=== PATIENT | female | born 1960 | race Caucasian/White ===

== ENCOUNTER → 2018-04-15 | Outpatient (CLI) | payer BC ==
--- NOTE | 2018-04-15 14:47 | ECHOF ---
Referral Reason:R07.89 chest pain/I10 essential hypertention MEASUREMENTS -------- HEIGHT: 160.0 cm WEIGHT: 78.9 kg BP: 177/94 RVIDd: 2.3 cm (< 3.3) IVSd: 1.0 cm (0.6 - 1.1) LVIDd: 2.9 cm (3.9 - 5.3) LVPWd: 1.1 cm (0.6 - 1.1) IVSs: 1.8 cm LVIDs: 1.4 cm LVPWs: 1.6 cm LAESV Index (A-L): 13.66 ml/m Ao Diam: 2.5 cm (2.0 - 3.7) AV Cusp: 1.7 cm (1.5 - 2.6) LA Diam: 2.9 cm (2.7 - 3.8) MV E Jose: 0.50 m/s MV DecT: 333 ms MV A Jose: 0.87 m/s MV E/A Ratio: 0.57 RAP: 5.00 mmHg RVSP: 31.16 mmHg FINDINGS -------- Resting tachycardia (HR>100bpm). This was a technically adequate study. The left ventricular size is normal. Left ventricular wall thickness is normal. Left ventricular systolic function is hyperdynamic with an estimated EF of >70%. The right ventricle is normal in size and function. Normal LA size by volume 22+/-6 ml/m2. The right atrium is normal in size. The aortic valve is trileaflet, and appears structurally normal. No aortic stenosis or regurgitation. The mitral valve leaflets are mildly thickened. There is trace to mild mitral regurgitation. Trace tricuspid regurgitation present. Right ventricular systolic pressure is normal at < 35 mmHg. There is no evidence of pulmonary hypertension. The pulmonic valve was not well visualized. The aortic root size is normal. Normal inferior vena cava with normal inspiratory collapse consistent with estimated right atrial pre ssure of 5 mmHg. There is no pericardial effusion. CONCLUSIONS -------- 1. Resting tachycardia (HR>100bpm). 2. This was a technically adequate study. 3. The left ventricular size is normal. 4. Left ventricular wall thickness is normal. 5. Left ventricular systolic function is hyperdynamic with an estimated EF of >70%. 6. Normal LA size by volume 22+/-6 ml/m2. 7. The aortic valve is trileaflet, and appears structurally normal. No aortic stenosis or regurgitati on. 8. The mitral valve leaflets are mildly thickened. 9. There is trace to mild mitral regurgitation. 10. Trace tricuspid regurgitation present. 11. Right ventricular systolic pressure is normal at < 35 mmHg. 12. There is no evidence of pulmonary hypertension. 13. The pulmonic valve was not well visualized. 14. The aortic root size is normal. 15. There is no pericardial effusion. [employer]: Ramírez Arreguin RDCS
--- NOTE | 2018-04-15 15:53 | EST ---
EXERCISE STRESS DATE OF SERVICE: 04/15/2018 AGE: 57 SEX: Female. HT: 5'3" WT: 174 PROTOCOL: Geoff. STAGE: II DURATION OF EXERCISE: 6:30 HEART RATE REST: 113 BLOOD PRESSURE REST: 175/86 MAXIMUM HEART RATE ACHIEVED: 178 MAXIMUM BLOOD PRESSURE: 218/47 85% MPHR: 139 100% MPHR: 164 METS: 7.9 INDICATIONS: Chest pain. CLINICAL INFORMATION: STRESS DATA: Pre-testing physical examination showed a heart rate of 113 and pressure of 175/86 mmHg. Baseline EKG showed sinus mechanism. The patient exercised on the treadmill on Geoff protocol for a total of 6 minutes and 30 seconds and achieved 7.9 METS. Maximum heart rate was 178, which is about 108% of maximum predicted heart rate. Maximum blood pressure was 218/69 mmHg. Clinically the patient did not have any symptoms of chest pain or discomfort, but she developed some shortness of breath in response to exercise. The EKG showed about [address]-segment depression in the anterolateral leads. The EKG changes were noted on recovery as well as at the peak of the heart rate. CONCLUSION: 1. Good exercise tolerance. 2. Shortness of breath in response to exercise. 3. Mildly abnormal EKG in response to exercise with [address]-segment depression. MMODL / IJN: [id number] /
== END | disposition home or self-care (01) ==
LOC: RADNMMAIN 10:36
PROVIDERS: ATTEND Family Medicine
DX: I34.0 Nonrheumatic mitral (valve) insufficiency (principal); I10 Essential (primary) hypertension; R00.0 Tachycardia, unspecified; R06.02 Shortness of breath; R94.31 Abnormal electrocardiogram [ECG] [EKG]; R07.89 Other chest pain
CPT/HCPCS: 93017; 93306

== ENCOUNTER 2019-02-21 12:11 | Observation (INO) | payer BC ==
[2019-02-21] MEDS ORDERED: ASPIRIN 81 MG PO STA (12:39)
[2019-02-21] MEDS ORDERED: NITROGLYCERIN SL TABS 0.4 MG TAB SUBLINGUAL STA ×3 (12:39)
--- NOTE | 2019-02-21 12:59 | ED ---
General Adult HPI - General Chief complaint: Chest Pain Stated complaint: CHEST PAIN Time Seen by Provider: 02/21/19 12:26 Source: patient, RN notes reviewed Mode of arrival: wheelchair Limitations: no limitations - History of Present Illness Initial comments: Patient is a pleasant 58-year-old female presenting to the emergency Department with chest discomfort. Patient states symptoms started up last night. Symptoms have been waxing and waning. Discomfort is currently 6/10. Times discomfort feels worse. Discomfort feels like pressure or sharp in the left chest. No radiation. No associated dyspnea or nausea. Patient was somewhat sweaty collins ier. Patient has had somewhat similar symptoms over the past few months and did have stress test that came back negative. - Related Data Home Medications Medication Instructions Recorded Confirmed Metoprolol Tartrate [Lopressor] 25 mg PO BID 02/21/19 02/21/19 Multivitamins, Thera [Multivitamin 1 tab PO DAILY 02/21/19 02/21/19 (formulary)] Allergies Allergy/AdvReac Type Severity Reaction Status Date / Time amlodipine [From [facility]] Allergy Unknown Verified 02/21/19 12:15 Sulfa (Sulfonamide Allergy Unknown Verified 02/21/19 12:15 Antibiotics) Review of Systems ROS Statement: Those systems with pertinent positive or pertinent negative responses have been documented in the HPI. ROS Other: All systems not noted in ROS Statement are negative. Constitutional: Denies: fever Eyes: Denies: eye pain ENT: Denies: ear pain Respiratory: Denies: cough Cardiovascular: Reports: chest pain Endocrine: Denies: fatigue Gastrointestinal: Denies: abdominal pain Genitourinary: Denies: dysuria Musculoskeletal: Denies: back pain Skin: Denies: rash Neurological: Denies: weakness Past Medical History Past Medical History: Hypertension Additional Past Medical History / Comment(s): kidney stones History of Any Multi-Drug Resistant Organisms: None Reported Additional Past Surgical History / Comment(s): lithotripsy Past Psychological History: No Psychological Hx Reported Smoking Status: Former smoker Past Alcohol Use History: None Reported Past Drug Use History: None Reported General Exam Limitations: no limitations General appearance: alert, in no apparent distress Head exam: Present: atraumatic Eye exam: Present: normal appearance Neck exam: Present: normal inspection Respiratory exam: Present: normal lung sounds bilaterally. Absent: chest wall tenderness Cardiovascular Exam: Present: regular rate, normal rhythm Expanded Peripheral pulses: 2+: Radial (R), Radial (L), Dorsalis Pedis (R), Dorsalis Pedis (L) GI/Abdominal exam: Present: soft. Absent: tenderness Extremities exam: Present: normal inspection. Absent: pedal edema, calf tenderness Neurological exam: Present: alert Psychiatric exam: Present: normal affect, normal mood Skin exam: Present: normal color Course Vital Signs 02/21/19 02/21/19 02/21/19 12:13 13:00 13:13 Temperature 98.4 F Pulse Rate 77 71 68 Respiratory 18 18 18 Rate Blood Pressure 183/83 196/97 160/85 O2 Sat by Pulse 99 92 L 94 L Oximetry 02/21/19 02/21/19 02/21/19 13:30 14:00 14:30 Temperature Pulse Rate 61 63 67 Respiratory 20 14 14 Rate Blood Pressure 170/85 176/88 182/87 O2 Sat by Pulse 97 95 96 Oximetry 02/21/19 15:00 Temperature Pulse Rate 68 Respiratory 14 Rate Blood Pressure 177/84 O2 Sat by Pulse 95 Oximetry EKG Findings - EKG Comments: EKG Findings:: Normal sinus rhythm 66. OK 112. QRS 86. QT 406. QTc 425. Normal axis. Normal QRS. No acute ST change. Medical Decision Making - Medical Decision Making Patient reevaluated and improved following nitroglycerin. Patient and family updated on results and plan. Case was discussed in detail with Dr. Butterfield, who will admit his patient. - Lab Data Result diagrams: 02/21/19 12:48 02/21/19 12:48 Lab Results 02/21/19 02/21/19 02/21/19 Range/Units 12:48 12:48 12:48 WBC 6.4 (3.8-10.6) k/uL RBC 5.58 H (3.80-5.40) m/uL Hgb 16.3 H (11.4-16.0) gm/dL Hct 50.2 H (34.0-46.0) % MCV 89.9 (80.0-100.0) fL MCH 29.1 (25.0-35.0) pg MCHC 32.4 (31.0-37.0) g/dL RDW 13.7 (11.5-15.5) % Plt Count 225 (150-450) k/uL Neutrophils % 70 % Lymphocytes % 19 % Monocytes % 6 % Eosinophils % 2 % Basophils % 1 % Neutrophils # 4.5 (1.3-7.7) k/uL Lymphocytes # 1.2 (1.0-4.8) k/uL Monocytes # 0.4 (0-1.0) k/uL Eosinophils # 0.1 (0-0.7) k/uL Basophils # 0.1 (0-0.2) k/uL PT 9.7 (9.0-12.0) sec INR 0.9 (<1.2) APTT 23.2 (22.0-30.0) sec Sodium 142 (137-145) mmol/L Potassium 5.1 (3.5-5.1) mmol/L Chloride 109 H (98-107) mmol/L Carbon Dioxide 24 (22-30) mmol/L Anion Gap 9 mmol/L BUN 21 H (7-17) mg/dL Creatinine 0.99 (0.52-1.04) mg/dL Est GFR (CKD-EPI)AfAm 73 (>60 ml/min/1.73 sqM) Est GFR (CKD-EPI)NonAf 64 (>60 ml/min/1.73 sqM) Glucose 123 H (74-99) mg/dL Calcium 9.4 (8.4-10.2) mg/dL Magnesium 2.0 (1.6-2.3) mg/dL Total Bilirubin 0.9 (0.2-1.3) mg/dL AST 42 H (14-36) U/L ALT 37 (9-52) U/L Alkaline Phosphatase 121 (38-126) U/L Troponin I (0.000-0.034) ng/mL Total Protein 7.2 (6.3-8.2) g/dL Albumin 4.3 (3.5-5.0) g/dL 02/21/19 Range/Units 12:48 WBC (3.8-10.6) k/uL RBC (3.80-5.40) m/uL Hgb (11.4-16.0) gm/dL Hct (34.0-46.0) % MCV (80.0-100.0) fL MCH (25.0-35.0) pg MCHC (31.0-37.0) g/dL RDW (11.5-15.5) % Plt Count (150-450) k/uL Neutrophils % % Lymphocytes % % Monocytes % % Eosinophils % % Basophils % % Neutrophils # (1.3-7.7) k/uL Lymphocytes # (1.0-4.8) k/uL Monocytes # (0-1.0) k/uL Eosinophils # (0-0.7) k/uL Basophils # (0-0.2) k/uL PT (9.0-12.0) sec INR (<1.2) APTT (22.0-30.0) sec Sodium (137-145) mmol/L Potassium (3.5-5.1) mmol/L Chloride (98-107) mmol/L Carbon Dioxide (22-30) mmol/L Anion Gap mmol/L BUN (7-17) mg/dL Creatinine (0.52-1.04) mg/dL Est GFR (CKD-EPI)AfAm (>60 ml/min/1.73 sqM) Est GFR (CKD-EPI)NonAf (>60 ml/min/1.73 sqM) Glucose (74-99) mg/dL Calcium (8.4-10.2) mg/dL Magnesium (1.6-2.3) mg/dL Total Bilirubin (0.2-1.3) mg/dL AST (14-36) U/L ALT (9-52) U/L Alkaline Phosphatase (38-126) U/L Troponin I <0.012 (0.000-0.034) ng/mL Total Protein (6.3-8.2) g/dL Albumin (3.5-5.0) g/dL - Radiology Data Radiology results: image reviewed (Chest x-ray does not reveal any acute process.) Disposition Clinical Impression: Chest pain Disposition: ADMITTED IP TO THIS HOSP Is patient prescribed a controlled substance at d/c from ED?: No Referrals: Cristino Butterfield DO [Primary Care Provider] - 1-2 days Decision Time: 15:03
--- NOTE | 2019-02-21 13:03 | XR ---
EXAMINATION TYPE: XR chest 2V DATE OF EXAM: 02/21/2019 COMPARISON: Chest x-ray February 14, 2014 HISTORY: Left-sided chest pain and difficulty in breathing. TECHNIQUE: Frontal and lateral views of the chest are obtained. FINDINGS: Overlying EKG leads are seen. There is chronic parenchymal change without suspicious focal air space opacity, pleural effusion, or pneumothorax seen. The cardiac silhouette size is stable and mildly enlarged with atherosclerotic aorta. The osseous structures are intact. IMPRESSION: Mild cardiomegaly with acute pulmonary process currently.
[2019-02-21 13:15] LABS: Albumin 4.3 g/dL (3.5-5.0); Calcium 9.4 mg/dL (8.4-10.2); Total Bilirubin 0.9 mg/dL (0.2-1.3); Total Protein 7.2 g/dL (6.3-8.2)
[2019-02-21 13:19] LABS: Basophils # (A) 0.1 k/uL (0-0.2); Basophils % (A) 1 %; Eosinophils # (A) 0.1 k/uL (0-0.7); Eosinophils % (A) 2 %; HCT 50.2 % (34.0-46.0); HGB 16.3 gm/dL (11.4-16.0); Lymphocytes # (A) 1.2 k/uL (1.0-4.8); Lymphocytes % (A) 19 %; MCH 29.1 pg (25.0-35.0); MCHC 32.4 g/dL (31.0-37.0); MCV 89.9 fL (80.0-100.0); Mean Platelet Volume 7.1; Monocytes # (A) 0.4 k/uL (0-1.0); Monocytes % (A) 6 %; Neutrophils # (A) 4.5 k/uL (1.3-7.7); Neutrophils % (A) 70 %; Platelet Count 225 k/uL (150-450); RBC 5.58 m/uL (3.80-5.40); RDW 13.7 % (11.5-15.5); WBC 6.4 k/uL (3.8-10.6)
[2019-02-21 13:40] LABS: INR 0.9 (<1.2); Partial Thromboplastin Time 23.2 sec (22.0-30.0)
[2019-02-21 13:41] LABS: Potassium 5.1 mmol/L (3.5-5.1); Prothrombin Time 9.7 sec (9.0-12.0)
[2019-02-21] MEDS ORDERED: NITROGLYCERIN SL TABS 0.4 MG TAB SUBLINGUAL PRN (15:06)
[2019-02-21] MEDS: NITROGLYCERIN OINT 1 INCH/GM PACKET TOPICAL SCH ×2 (21:36→23:15)
[2019-02-21 23:00] VITALS: BMI 31.5
[2019-02-21] MEDS ORDERED: amLODIPine 5 MG TAB PO STA (23:33)
[2019-02-21] MEDS ORDERED: ACETAMINOPHEN TAB 325 MG TAB PO PRN (23:34)
[2019-02-21] MEDS: METOPROLOL TARTRATE 25 MG TAB PO SCH (23:42)
[2019-02-22] MEDS ORDERED: cloNIDine HCL 0.1 MG TAB PO STA (00:23)
[2019-02-22 01:58] LABS: Cholesterol 252 mg/dL (<200); HDL Cholesterol 49 mg/dL (40-60); LDL Cholesterol,Calculated 149 mg/dL (0-99); Triglycerides 271 mg/dL (<150)
[2019-02-22] MEDS: NITROGLYCERIN OINT 1 INCH/GM PACKET TOPICAL SCH (05:42)
[2019-02-22 08:07] VITALS: RESP 18
[2019-02-22] MEDS ORDERED: ASPIRIN 325 MG TAB PO SCH (09:00)
[2019-02-22] MEDS: METOPROLOL TARTRATE 25 MG TAB PO SCH (10:41)
[2019-02-22] MEDS ORDERED: LABETALOL 100 MG TAB PO SCH (10:45)
--- NOTE | 2019-02-22 10:48 | P.CRDCN ---
History of Present Illness History of present illness: This is a pleasant 58-year-old female past medical history significant for hypertension. She denies history of coronary artery disease, dyslipidemia or diabetes mellitus. She follows in the office with Dr. Cantu. We've asked to see her in consultation for symptoms of chest discomfort. She describes feeling a sharp stabbing pain in the left precordial region is very intermittent with no specific aggravating or alleviating factors. The pain is very brief when it comes there is no radiation to the arm, back, neck or jaw. There is no shortness of breath, nausea, vomiting, dizziness, diaphoresis or palpitations. She states she has had pain like this in the past and has undergone recent stress testing in the office. Review of the records reveal she had a Lexiscan stress test in October 2018 was negative for reversible cardiac ischemia. She also had an echocardiogram in the office March 2018 revealed preserved left ventricular systolic function with ejection fraction greater then 70%. She has struggled with her blood pressure frequently over the previous few months. She states she is intolerant to amlodipine and developed significant lower extremity edema which was switched to Benicar which caused her to have a cough. Recently in the office Dr. Cantu switched her to metoprolol 25 mg twice a day with recommendation to monitor her blood pressure at home. Her blood pressures at home continue to be elevated. On arrival blood pressure was 183/83 and 196/97. She was given a dose of Catapres last evening. Blood pressure this morning 158/80 heart rate of 61. She is seen and examined resting comfortably in bed in no acute distress she is currently chest pain-free. EKG reveals sinus mechanism with no acute ST or T wave abnormalities noted. Chest x-ray is negative for an acute cardiopulmonary process. Laboratory data reviewed, WBC 6.4, hemoglobin 16.3, platelets 225, sodium 142, potassium 5.1, creatinine 0.99, magnesium 2.0, cardiac enzymes negative 3, LDL 149. At the time of my exam: CONSTITUTIONAL: Denies fever. Denies chills. EYES: Denies blurred vision. Denies vision changes. Denies eye pain. EARS, NOSE, MOUTH & THROAT: Denies headache. Denies sore throat. Denies ear pain. CARDIOVASCULAR: Denies chest pain. Denies shortness of breath. Denies orthopnea. Denies PND. Denies palpitations. RESPIRATORY: Denies cough. GASTROINTESTINAL: Denies abdominal pain. Denies diarrhea. Denies constipation. Denies nausea. Denies vomiting. MUSCULOSKELETAL: Denies myalgias. INTEGUMENTARY: Denies pruitis. Denies rash. NEUROLOGIC: Denies numbness. Denies tingling. Denies weakness. PSYCHIATRIC: Denies anxiety. Denies depression. ENDOCRINE: Denies fatigue. Denies weight change. Denies polydipsia. Denies polyurina. GENITOURINARY: Denies burning, hematuria or urgency with micturation. HEMATOLOGIC: Denies history of anemia. Denies bleeding. GENERAL: This is a 58-year-old female in no apparent distress at the time of my examination. HEENT: Head is atraumatic, normocephalic. Pupils are equal, round. Sclerae anicteric. Conjunctivae are clear. Mucous membranes of the mouth are moist. Neck is supple. There is no jugular venous distention. No carotid bruit is heard. LUNGS: Clear to auscultation no wheezes, rales or rhonchi. No chest wall t enderness is noted on palpation or with deep breathing. HEART: Regular rate and rhythm without murmurs, rubs or gallops. S1 and S2 heard. ABDOMEN: Soft, nontender. Bowel sounds are heard. No organomegaly noted. EXTREMITIES: No evidence of peripheral edema and no calf tenderness noted. VASCULAR: Radial and dorsalis pedis pulses palpated, no evidence of clubbing. NEUROLOGIC: Patient is awake, alert and oriented x3. ASSESSMENT Chest pain, atypical for angina. An acute coronary event has been ruled out. Recent stress test in the office October 2018 was negative for reversible cardiac ischemia. Hypertension, uncontrolled Dyslipidemia PLAN An acute coronary event has been ruled out. Recent normal stress test in the office. Uncontrolled hypertension may be causing her symptoms. Change lopressor to labetolol 100 mg BID, first dose now. Add atorvastatin 40 mg daily. Lifestyle modifications recommended for lowering of cholesterol and weight loss. Follow up with Dr. Cantu upon discharge. Continue with a blood pressure log to bring to follow up appointment. Thank you kindly for this consultation. Nurse Practitioner note has been reviewed, I agree with a documented findings and plan of care. Patient was seen and examined. Past Medical History Past Medical History: Hypertension Additional Past Medical History / Comment(s): kidney stones History of Any Multi-Drug Resistant Organisms: None Reported Additional Past Surgical History / Comment(s): lithotripsy Past Anesthesia/Blood Transfusion Reactions: No Reported Reaction Past Psychological History: No Psychological Hx Reported Smoking Status: Former smoker Past Alcohol Use History: None Reported Past Drug Use History: None Reported - Past Family History Mother Family Medical History: Hypertension, Myocardial Infarction ([place]) Father Family Medical History: Hypertension Medications and Allergies Home Medications Medication Instructions Recorded Confirmed Type Metoprolol Tartrate [Lopressor] 25 mg PO BID 02/21/19 02/21/19 History Multivitamins, Thera [Multivitamin 1 tab PO DAILY 02/21/19 02/21/19 History (formulary)] Allergies Allergy/AdvReac Type Severity Reaction Status Date / Time amlodipine [From [facility]] Allergy Unknown Verified 02/21/19 12:15 Sulfa (Sulfonamide Allergy Unknown Verified 02/21/19 12:15 Antibiotics) Physical Exam Vitals: Vital Signs Temp Pulse Pulse Resp BP BP BP 02/22/19 08:00 98.7 F 61 18 158/80 02/22/19 04:00 97.9 F 60 16 144/65 02/22/19 03:33 16 02/22/19 00:50 188/83 02/22/19 00:00 71 16 02/21/19 23:51 98.2 F 71 16 199/82 02/21/19 22:54 20 02/21/19 22:30 70 20 172/89 02/21/19 22:00 67 16 175/80 02/21/19 21:30 67 18 163/81 02/21/19 21:00 68 20 150/73 02/21/19 20:00 70 18 180/89 02/21/19 18:30 68 14 165/87 02/21/19 18:00 66 15 167/79 02/21/19 17:30 71 15 171/81 02/21/19 17:00 69 20 177/84 02/21/19 16:30 61 18 174/90 02/21/19 16:00 64 14 182/90 02/21/19 15:30 68 15 181/85 02/21/19 15:00 68 14 177/84 02/21/19 14:30 67 14 182/87 02/21/19 14:00 63 14 176/88 02/21/19 13:30 61 20 170/85 02/21/19 13:13 68 18 160/85 02/21/19 13:00 71 18 196/97 02/21/19 12:13 98.4 F 77 18 183/83 Pulse Ox 02/22/19 08:00 95 02/22/19 04:00 94 L 02/22/19 03:33 02/22/19 00:50 02/22/19 00:00 02/21/19 23:51 95 02/21/19 22:54 02/21/19 22:30 94 L 02/21/19 22:00 95 02/21/19 21:30 94 L 02/21/19 21:00 94 L 02/21/19 20:00 94 L 02/21/19 18:30 96 02/21/19 18:00 95 02/21/19 17:30 94 L 02/21/19 17:00 96 02/21/19 16:30 96 02/21/19 16:00 96 02/21/19 15:30 96 02/21/19 15:00 95 02/21/19 14:30 96 02/21/19 14:00 95 02/21/19 13:30 97 02/21/19 13:13 94 L 02/21/19 13:00 92 L 02/21/19 12:13 99 Intake and Output 02/21/19 02/22/19 02/22/19 22:59 06:59 14:59 Intake Total 100 Balance 100 Intake: Oral 100 Other: # Voids 2 Results 02/21/19 12:48 02/21/19 12:48 Cardiac Enzymes 02/21/19 02/21/19 02/21/19 Range/Units 12:48 12:48 20:39 AST 42 H (14-36) U/L Troponin I <0.012 <0.012 (0.000-0.034) ng/mL 02/22/19 Range/Units 00:32 AST (14-36) U/L Troponin I <0.012 (0.000-0.034) ng/mL Coagulation 02/21/19 Range/Units 12:48 PT 9.7 (9.0-12.0) sec APTT 23.2 (22.0-30.0) sec Lipids 02/21/19 Range/Units 12:48 Triglycerides 271 H (<150) mg/dL Cholesterol 252 H (<200) mg/dL HDL Cholesterol 49 (40-60) mg/dL CBC 02/21/19 Range/Units 12:48 WBC 6.4 (3.8-10.6) k/uL RBC 5.58 H (3.80-5.40) m/uL Hgb 16.3 H (11.4-16.0) gm/dL Hct 50.2 H (34.0-46.0) % Plt Count 225 (150-450) k/uL Comprehensive Metabolic Panel 02/21/19 Range/Units 12:48 Sodium 142 (137-145) mmol/L Potassium 5.1 (3.5-5.1) mmol/L Chloride 109 H (98-107) mmol/L Carbon Dioxide 24 (22-30) mmol/L BUN 21 H (7-17) mg/dL Creatinine 0.99 (0.52-1.04) mg/dL Glucose 123 H (74-99) mg/dL Calcium 9.4 (8.4-10.2) mg/dL AST 42 H (14-36) U/L ALT 37 (9-52) U/L Alkaline Phosphatase 121 (38-126) U/L Total Protein 7.2 (6.3-8.2) g/dL Albumin 4.3 (3.5-5.0) g/dL Current Medications Generic Name Dose Route Start Last Admin Trade Name Freq PRN Reason Stop Dose Admin Acetaminophen 650 mg 02/21/19 23:34 02/22/19 00:14 Tylenol Tab PO 650 mg Q6HR PRN Administration Fever and/ or Pain Aspirin 325 mg 02/22/19 09:00 Aspirin PO DAILY SAL Metoprolol Tartrate 25 mg 02/21/19 23:30 02/21/19 23:42 Lopressor PO 25 mg BID SAL Administration Nitroglycerin 1 inch 02/21/19 18:00 02/22/19 05:42 Nitro-Bid Oint TOPICAL 1 inch Q6HR SAL Administration Nitroglycerin 0.4 mg 02/21/19 15:06 Nitrostat SUBLINGUAL Q5M PRN Chest Pain Sodium Chloride 10 ml 02/21/19 21:00 02/21/19 22:52 Saline Flush IV Not Given BID SAL Intake and Output 02/21/19 02/22/19 02/22/19 22:59 06:59 14:59 Intake Total 100 Balance 100 Intake: Oral 100 Other: # Voids 2 02/21/19 12:48 02/21/19 12:48
[2019-02-22] MEDS ORDERED: ATORVASTATIN 40 MG TAB PO SCH (11:00)
[2019-02-22 12:31] VITALS: BP 157/67; PULSE 72; TEMP 97.7
[2019-02-22] MEDS ORDERED: EZETIMIBE 10 MG TAB PO SCH (12:45)
--- NOTE | 2019-02-22 23:37 | P.HPIM ---
History of Present Illness H&P Date: 02/22/19 Chief Complaint: chest pain Patient is a pleasant 58-year-old female presenting to the emergency Department with chest discomfort. midsternal nonradiating. Patient states symptoms started up last night. Symptoms have been waxing and waning. Discomfort is currently resolved. Discomfort feels like pressure or sharp in the left chest, No associated dyspnea or nausea. Patient has had somewhat similar symptoms over the past few months and did have stress test that came back negative. ith Dr. Cantu she also had similar hospitalization in April 2018 with echo and stress test performed which was negative at that time. She has long-f hyperlipidemia which has refused statins for many years. Review of Systems GENERAL: Patient denies fever. Denies chills. EYES: Denies blurred vision. Denies vision changes. Denies eye pain. EARS, NOSE, MOUTH, & THROAT: Denies headache. Denies sore throat. Denies ear pain. RESPIRATORY: Denies cough. Denies shortness of breath. Denies sputum production. Denies hemoptysis. CARDIOVASCULAR: admits to chest pain nonradiatinstarting at 6 out of 10 now resolved. Denies any diaphoresis or nausea. Denies palpitations. Denies arrhythmias. GASTROINTESTINAL: Denies abdominal pain. Denies diarrhea. Denies constipation. Denies nausea. Denies vomiting. Denies heartburn. Denies blood in the stool. GENITOURINARY: Denies urinary frequency. Denies burning. Denies dysuria. Denies cloudy urine. Denies blood in the urine. MUSCULOSKELETAL: Denies myalgias. Denies joint swelling. Denies decreased range of motion beyond patients baseline. INTEGUMENTARY: Denies pruitis. Denies rash. PSYCHIATRIC: Denies suicidal or homicial ideations. ENDOCRINE: Denies weight change. Denies polydipsia. Denies polyuria. HEMATOLOGIC: Denies bleeding disorders. Past Medical History Past Medical History: Hypertension Additional Past Medical History / Comment(s): kidney stones History of Any Multi-Drug Resistant Organisms: None Reported Additional Past Surgical History / Comment(s): lithotripsy Past Anesthesia/Blood Transfusion Reactions: No Reported Reaction Past Psychological History: No Psychological Hx Reported Smoking Status: Former smoker Past Alcohol Use History: None Reported Past Drug Use History: None Reported - Past Family History Mother Family Medical History: Hyperlipidemia, Hypertension, Myocardial Infarction ([place]) Father Family Medical History: Hypertension Medications and Allergies Home Medications Medication Instructions Recorded Confirmed Type Multivitamins, Thera [Multivitamin 1 tab PO DAILY 02/21/19 02/21/19 History (formulary)] Aspirin 325 mg PO DAILY tab 02/22/19 Rx Ezetimibe [Zetia] 10 mg PO DAILY #90 tab 02/22/19 Rx Labetalol [Trandate] 100 mg PO BID #120 tab 02/22/19 Rx Allergies Allergy/AdvReac Type Severity Reaction Status Date / Time amlodipine [From [facility]] Allergy Unknown Verified 02/21/19 12:15 Sulfa (Sulfonamide Allergy Unknown Verified 02/21/19 12:15 Antibiotics) Physical Exam Osteopathic Statement: *. No significant issues noted on an osteopathic structural exam other than those noted in the History and Physical/Consult. Vitals: Vital Signs Temp Pulse Resp BP BP Pulse Ox 02/22/19 12:00 97.7 F 72 18 157/67 96 02/22/19 08:00 98.7 F 61 18 158/80 95 02/22/19 04:00 97.9 F 60 16 144/65 94 L 02/22/19 03:33 16 02/22/19 00:50 188/83 02/22/19 00:00 71 16 02/21/19 23:51 98.2 F 71 16 199/82 95 Intake and Output 02/22/19 02/22/19 02/23/19 14:59 22:59 06:59 Intake Total 960 Balance 960 Intake: Oral 960 Other: # Voids 2 GENERAL: This is a -year- 58old female in no apparent distress at the time of examination. Pleasant and cooperative. HEENT: Head is atraumatic, normocephalic. Pupils are equal, round, and reactive to light. Sclerae anicteric. Conjunctivae are clear. Mucus membranes of the mouth are moist. Neck is supple. RESPIRATORY: Clear to auscultation. No wheezes, rales, or rhonchi. No use of accessory muscles. Patient maintaining oxygen saturation greater than 92%. No chest wall tenderness is noted on palpation or with deep breathing. CARDIOVASCULAR: Regular rate and rhythm. S1 and S2 noted. No systolic or diastolic murmur auscultated. No JVD noted. No S3 or S4 noted. GASTROINTESTINAL: No distention noted. Abdomen soft and round. Normal active bowel sounds auscultated x 4 quadrants. No pain or tenderness noted upon palpation. INTEGUMENTARY: No cyanosis. No jaundice. No rashes noted. No cellulitis noted. EXTREMITIES: 2+ peripheral pulses. No evidence of peripheral edema. No calf tenderness noted. NEUROLOGIC: Cranial nerves II-XII intact. PSYCHIATRIC: Awake, alert, and oriented X 3. Appropriate affect. Intact judgement and insight. Results CBC & Chem 7: 02/21/19 12:48 02/21/19 12:48 Labs: Abnormal Lab Results - Last 24 Hours (Table) 02/21/19 Range/Units 12:48 Triglycerides 271 H (<150) mg/dL Cholesterol 252 H (<200) mg/dL LDL Cholesterol, Calc 149 H (0-99) mg/dL Thrombosis Risk Factor Assmnt - Choose All That Apply Any of the Below Risk Factors Present?: Yes Each Factor Represents 1 point: Age 41-60 years, Obesity (BMI >25) Other Risk Factors: No Other congenital or acquired thrombophilia - If yes, enter type in comment: No Thrombosis Risk Factor Assessment Total Risk Factor Score: 2 Thrombosis Risk Factor Assessment Level: Low Risk Assessment and Plan (1) Hypertension Status: Acute Code(s): I10 - ESSENTIAL (PRIMARY) HYPERTENSION SNOMED Code(s): 59212857 (2) Hyperlipemia, mixed Status: Acute Code(s): E78.2 - MIXED HYPERLIPIDEMIA SNOMED Code(s): 814790320 (3) Cessation of tobacco use in previous 12 months Narrative/Plan: plan is to admit patient for cardiology consultation progress serial EKGs and serial enzymes all were in progress anemarkable at this point. Status: Acute Code(s): Z87.891 - PERSONAL HISTORY OF NICOTINE DEPENDENCE SNOMED Code(s): 21806879453433 (4) Chest pain Status: Acute Code(s): R07.9 - CHEST PAIN, UNSPECIFIED SNOMED Code(s): 16324151
--- NOTE | 2019-02-22 23:40 | P.DS ---
Providers Date of admission: 02/21/19 15:06 Expected date of discharge: 02/22/19 Attending physician: Cristino Butterfield Consults: 02/21/19 15:06 Consult Physician Urgent Consulting Provider: Dimitris Cantu Consult Reason/Comments: cp Do you want consulting provider notified?: Yes Primary care physician: Cristino Butterfield - Discharge Diagnosis(es) (1) Hypertension Status: Acute (2) Hyperlipemia, mixed Status: Acute (3) Cessation of tobacco use in previous 12 months Status: Acute (4) Chest pain Status: Acute Hospital Course: this is an pleasant 58-year-old white female who the above diagnosis she was treated with serial EKGs enzymes and cardiac evaluationher chest pain has resolved and she was doing quite well and found to be cleared by cardiology for discharge the main concern is her lack of ability to take statins for hypertriglycerides and hyperlipidemia. Also her blood pressure is still relatively uncontrolled. Some recommendations were made into new medications were added. Plan - Discharge Summary New Discharge Prescriptions: New Aspirin 325 mg PO DAILY tab Labetalol [Trandate] 100 mg PO BID #120 tab Ezetimibe [Zetia] 10 mg PO DAILY #90 tab Continue Multivitamins, Thera [Multivitamin (formulary)] 1 tab PO DAILY Discontinued Metoprolol Tartrate [Lopressor] 25 mg PO BID Discharge Medication List Multivitamins, Thera [Multivitamin (formulary)] 1 tab PO DAILY 02/21/19 [History] Aspirin 325 mg PO DAILY tab 02/22/19 [Rx] Ezetimibe [Zetia] 10 mg PO DAILY #90 tab 02/22/19 [Rx] Labetalol [Trandate] 100 mg PO BID #120 tab 02/22/19 [Rx] Follow up Appointment(s)/Referral(s): Dimitris Cantu MD [STAFF PHYSICIAN] - 2 Weeks (Check blood pressure daily and record. Bring with you to follow up visit. ) Cristino Butterfield DO [Primary Care Provider] - 1 Week Discharge Disposition: HOME SELF-CARE
== END 2019-02-22 16:34 | disposition home or self-care (01) ==
LOC: EC 12:11 → 3SCARD 15:06 → 1SOBS 16:28
PROVIDERS: ADMIT Family Medicine; ATTEND Family Medicine
DX: R07.89 Other chest pain (principal); I11.9 Hypertensive heart disease without heart failure; E78.2 Mixed hyperlipidemia; E66.9 Obesity, unspecified; Z68.31 Body mass index [BMI] 31.0-31.9, adult; Z79.899 Other long term (current) drug therapy; Z88.2 Allergy status to sulfonamides; Z88.8 Allergy status to other drugs, medicaments and biological substances; Z87.442 Personal history of urinary calculi; Z87.891 Personal history of nicotine dependence; Z82.49 Family history of ischemic heart disease and other diseases of the circulatory system
CPT/HCPCS: 99285; 36415; 93005; 80061; 80053; 83735; 84484 ×2; 85025; 85610; 85730; 71046; G0378 ×3

== ENCOUNTER → 2019-03-29 | Outpatient (CLI) | payer BC ==
--- NOTE | 2019-03-29 15:24 | NM ---
EXAMINATION TYPE: NM hepatobiliary w EF DATE OF EXAM: 03/29/2019 COMPARISON: NONE INDICATION: Acute cholecystitis TECHNIQUE: After the intravenous administration of 5.23 mCi Tc 99m Mebrofenin hepatobiliary scintigra phy is performed. Images were obtained immediately post injection. FINDINGS: There is prompt uptake and excretion of radiotracer by the liver. Extrahepatic ducts are identified at 16 minutes. The gallbladder is visualized within 21 minutes. Small bowel activity is noted within 27 minutes. At one hour 8 ounces of oral ensure plus is given to mimic CCK and gallbladder ejection fraction is c alculated at 87 %, which is hyperkinetic. (Normal >35% and <80%.). IMPRESSION: 1. Correlate for biliary hyperkinesia
== END ==
LOC: RADNMMAIN 12:59
PROVIDERS: ATTEND Family Medicine
DX: K81.0 Acute cholecystitis (principal)
CPT/HCPCS: 78226; A9537

== ENCOUNTER 2019-10-12 07:43 | Day surgery (SDC) | payer BC ==
[2019-10-11 09:44] VITALS: BMI 29.5
[~2019-10-12 07:43] MED LIST: DEXAMETHASONE SOD PHOSPHATE 10 MG/ML 1 ML VIAL IV ONE; HEPARIN SODIUM,PORCINE 5,000 UNIT/ML 1 ML VIAL SQ ONE; HYDROmorphone 0.5 MG/0.5 ML SYRINGE IVP PRN; LACTATED RINGERS 1,000 ML IV SCH; LIDOCAINE 1% 20 ML VIAL (10MG/ML) FOR IV START INTRADERMA PRN; MIDAZOLAM 2 MG/2 ML VIAL IV PRN; SCOPOLAMINE 1.5MG/72HR PATCH TRANSDERM ONE
[2019-10-12] MEDS: ONDANSETRON 4 MG/2 ML VIAL IVP ONE ×2 (08:44→11:18)
--- NOTE | 2019-10-12 08:45 | P.GSHP ---
History of Present Illness H&P Date: 10/12/19 Chief Complaint: Right upper quadrant pain This a 51-year-old female who presents today for laparoscopic cholecystectomy. Patient did complain tomorrow quadrant pain. Her recent HIDA scan shows an abnormal ejection fraction consistent with biliary hyperkinesia's. Past Medical History Past Medical History: Hyperlipidemia, Hypertension Additional Past Medical History / Comment(s): kidney stones History of Any Multi-Drug Resistant Organisms: None Reported Past Surgical History: Tubal Ligation Additional Past Surgical History / Comment(s): lithotripsy Past Anesthesia/Blood Transfusion Reactions: No Reported Reaction Smoking Status: Former smoker - Past Family History Mother Family Medical History: Hyperlipidemia, Hypertension, Myocardial Infarction ([place]) Father Family Medical History: Cancer, Hypertension Additional Family Medical History / Comment(s): leukemia Medications and Allergies Home Medications Medication Instructions Recorded Confirmed Type Ezetimibe [Zetia] 10 mg PO DAILY #90 tab 02/22/19 10/12/19 Rx Acetaminophen [Tylenol] 325 mg PO DAILY PRN 10/11/19 10/12/19 History Labetalol [Trandate] 200 mg PO BID 10/11/19 10/12/19 History Allergies Allergy/AdvReac Type Severity Reaction Status Date / Time amlodipine [From [facility]] Allergy Unknown Verified 10/12/19 08:17 Sulfa (Sulfonamide Allergy Unknown Verified 10/12/19 08:17 Antibiotics) Surgical - Exam Vital Signs Temp Pulse Resp BP Pulse Ox 99.2 F 77 16 182/84 94 L 10/12/19 08:20 10/12/19 08:20 10/12/19 08:20 10/12/19 08:20 10/12/19 08:20 - General well developed, well nourished, no distress - Eyes PERRL - ENT normal pinna - Neck no masses - Respiratory normal expansion - Cardiovascular Rhythm: regular - Abdomen Abdomen: soft, non tender Assessment and Plan Assessment: Right quadrant pain Chronic cholecystitis We'll perform laparoscopic cholecystectomy
[2019-10-12] MEDS ORDERED: SUCCINYLCHOLINE CHLORIDE 100 MG/5 ML SYR IV ONE (08:59)
[2019-10-12] MEDS ORDERED: NEOSTIGMINE 1 MG/ML 10 ML VIAL ONE (08:59)
[2019-10-12] MEDS ORDERED: GLYCOPYRROLATE 0.2 MG/ML 2 ML VIAL ONE (08:59)
[2019-10-12] MEDS ORDERED: LIDOCAINE 1% INJ 10MG/ML (20 ML MDV) ONE (08:59)
[2019-10-12] MEDS ORDERED: KETOROLAC 30 MG/ML 1 ML VIAL ONE (08:59)
[2019-10-12] MEDS ORDERED: fentaNYL (PF) 50 MCG/ML 2 ML AMP ONE (08:59)
[2019-10-12] MEDS ORDERED: PROPOFOL 10 MG/ML 20 ML VIAL IV ONE (08:59)
[2019-10-12] MEDS ORDERED: MIDAZOLAM 2 MG/2 ML VIAL ONE (08:59)
[2019-10-12] MEDS ORDERED: ROCURONIUM BROMIDE 10 MG/ML 10 ML VIAL IV ONE (08:59)
[2019-10-12] MEDS ORDERED: BUPIVACAINE (PF) 0.25% 30 ML VIAL SQ ONE (09:24)
--- NOTE | 2019-10-12 09:45 | P.OP ---
Date of Procedure: 10/12/19 Preoperative Diagnosis: Chronic cholecystitis Postoperative Diagnosis: Chronic cholecystitis Procedure(s) Performed: Laparoscopic cholecystectomy Anesthesia: ILENE Surgeon: Aleksandar Johnson Estimated Blood Loss (ml): 5 Pathology: other (Gallbladder) Condition: stable Disposition: PACU Description of Procedure: The patient was placed on the operating table. The patient received a general endotracheal tube anesthesia. The patients abdomen was prepped and draped in the usual sterile fashion. Through an infraumbilical stab incision, the fascia of the anterior abdominal wall was grasped with a pair of Kochers and then the Veress needle was placed in the peritoneal cavity. Position of the Veress needle was confirmed with positive drop test. The abdomen was then insufflated. After adequate insufflation, the 10 mm trocar was placed in the peritoneal cavity. Following this the laparoscope was placed in the peritoneal cavity. The patient was placed in the head-up, right side up position and then a 5 mm trocar was placed in the right lateral and right subcostal position under direct visualization. A 8 mm trocar was placed in the epigastric position. The gallbladder was grasped in the fundus and infundibulum. Traction on the gallbladder was placed in the lateral and the cephalad positions. The triangle of Calot was visualized.. The cystic duct was bluntly dissected until the union of the cystic duct and common bile duct was seen. A critical view of safety was achieved. The cystic duct was then divided and sealed with the Harmonic scissors. A PDS Endoloop was then placed throughout the cystic duct stump. The cystic artery divided and sealed with the Harmonic scissors. The gallbladder was then removed from the liver bed using Harmonic scissors. The gallbladder was then extracted through the epigastric port site. Operative field was checked for any bleeding spots and Harmonic scissors was used to coagulate the liver bed. The abdomen was irrigated. The trocars were removed. The skin was closed using interrupted 3-0 Vicryl suture. Dermabond dressing were applied. The patient tolerated the procedure well.
[2019-10-12 09:57] VITALS: TEMP 96.8
[2019-10-12 10:02] VITALS: RESP 16
[2019-10-12] MEDS ORDERED: LABETALOL SYRINGE 5 MG/ML IV ONE (11:03)
[2019-10-12 11:46] VITALS: BP 141/65; PULSE 74
== END 2019-10-12 12:12 | disposition home or self-care (01) ==
LOC: OR 07:43
PROVIDERS: ATTEND Surgery
DX: K81.1 Chronic cholecystitis (principal); E78.5 Hyperlipidemia, unspecified; I10 Essential (primary) hypertension; Z87.442 Personal history of urinary calculi; Z98.51 Tubal ligation status; Z87.891 Personal history of nicotine dependence; Z82.49 Family history of ischemic heart disease and other diseases of the circulatory system; Z80.6 Family history of leukemia; Z79.899 Other long term (current) drug therapy; Z88.2 Allergy status to sulfonamides; Z88.8 Allergy status to other drugs, medicaments and biological substances
CPT/HCPCS: 88304; 47562; J2250; J1644; J1100; J2710; J0690; J2405; J2001; J3010; J1885; J0330; J2704; J1170

== ENCOUNTER 2020-07-14 15:30 | Emergency (ER) | payer BC ==
[2020-07-14] MEDS ORDERED: diphenhydrAMINE 50 MG CAP PO STA (16:02)
[2020-07-14] MEDS ORDERED: methylPREDNISolone SOD SUCCI 125 MG/2 ML VIAL IM ONE (16:02)
--- NOTE | 2020-07-14 16:04 | ED ---
Allergic Reaction HPI - General Chief complaint: Allergic Reaction Stated complaint: bee sting Time Seen by Provider: 07/14/20 15:37 Source: patient Mode of arrival: ambulatory Limitations: no limitations - History of Present Illness Initial Comments: patient is a 59-year-old female presenting to emergency Department with complaints of a possible ALLERGIC reaction to a bee sting. patient was done and on right posterior lower leg approximately 30 minutes prior to arrival. She states she has never had an anaphylactic reaction but states localized swelling with past reactions. She denies any shortness of breath, chest pain, throat pain, generalized rash. She did not take any medications prior to arrival. She denies any recent fever, chills. She has no further complaints at this time. Upon arrival to the ER, her vital signs are stable. - Related Data Home Medications Medication Instructions Recorded Confirmed Acetaminophen [Tylenol] 325 mg PO DAILY PRN 10/11/19 10/12/19 Labetalol [Trandate] 200 mg PO BID 10/11/19 10/12/19 Previous Rx's Medication Instructions Recorded Ezetimibe [Zetia] 10 mg PO DAILY #90 tab 02/22/19 Docusate [Colace] 100 mg PO BID #20 capsule 10/12/19 HYDROcodone/APAP 5-325MG [[place] 1 tab PO Q6HR PRN #10 tab 10/12/19 5-325] Allergies Allergy/AdvReac Type Severity Reaction Status Date / Time [facility] Allergy Unknown Verified 07/14/20 15:36 Sulfa (Sulfonamide Allergy Unknown Verified 07/14/20 15:36 Antibiotics) Review of Systems ROS Statement: Those systems with pertinent positive or pertinent negative responses have been documented in the HPI. ROS Other: All systems not noted in ROS Statement are negative. Past Medical History Past Medical History: Hyperlipidemia, Hypertension Additional Past Medical History / Comment(s): kidney stones History of Any Multi-Drug Resistant Organisms: None Reported Past Surgical History: Tubal Ligation Additional Past Surgical History / Comment(s): lithotripsy Past Anesthesia/Blood Transfusion Reactions: No Reported Reaction Past Psychological History: No Psychological Hx Reported Smoking Status: Former smoker Past Alcohol Use History: None Reported Past Drug Use History: None Reported - Past Family History Mother Family Medical History: Hyperlipidemia, Hypertension, Myocardial Infarction ([place]) Father Family Medical History: Cancer, Hypertension Additional Family Medical History / Comment(s): leukemia General Exam - General Exam Comments Initial Comments: GENERAL: Patient is well-developed and well-nourished. Patient is nontoxic and in no acute distress. HEAD: Atraumatic, normocephalic. EYES: Pupils equal round and reactive to light, extraocular movements intact, sclera anicteric, conjunctiva are normal. Eyelids were unremarkable. ENT: TMs normal, nares patent, oropharynx clear without exudates. Moist mucous membranes. NECK: Normal range of motion, supple without lymphadenopathy or JVD. LUNGS: Unlabored respirations. Breath sounds clear to auscultation bilaterally and equal. No wheezes rales or rhonchi. HEART: Regular rate and rhythm without murmurs, rubs or gallops. ABDOMEN: Soft, nontender, normoactive bowel sounds. No guarding, no rebound. No masses appreciated. : Deferred MUSCULOSKELETAL: Normal extremities with adequate strength and normal range of motion, no pitting or edema. No clubbing or cyanosis. NEUROLOGICAL: Patient is alert and oriented x 3. Normal speech, normal gait. PSYCH: Normal mood, normal affect. SKIN: Warm, Dry, normal turgor. patient has a small area of erythematous, raised skin, consistent with a local reaction to a recent insect sting on the posterior aspect of the right lower leg.. Limitations: no limitations Course Vital Signs 07/14/20 07/14/20 15:34 16:17 Temperature 98.9 F 98.0 F Pulse Rate 87 82 Respiratory 18 16 Rate Blood Pressure 241/112 167/88 O2 Sat by Pulse 95 98 Oximetry Medical Decision Making - Medical Decision Making patient is a 59-year-old female here for concern of ALLERGIC reaction to a bee sting. Patient has just a generalized reaction on the posterior aspect of her right lower leg. Rest of exam is unremarkable, no shortness of breath, no rashes, no nausea or vomiting. Patient was given Benadryl and Solu-Medrol in the ER with concerns for swelling. She is stable for discharge. She can follow up with her PCP. Return parameters were discussed with the patient she verbalized understanding. Disposition Clinical Impression: Insect sting Disposition: HOME SELF-CARE Condition: Stable Instructions (If sedation given, give patient instructions): Insect Bite or Sting (ED) Additional Instructions: Please return to the Emergency Department if symptoms worsen or any other concerns. Ice to the area, may repeat Benadryl tonight. Is patient prescribed a controlled substance at d/c from ED?: No Referrals: Cristino Butterfield DO [Primary Care Provider] - 1-2 days
[2020-07-14 16:18] VITALS: BP 167/88; PULSE 82; RESP 16; TEMP 98
== END 2020-07-14 16:17 | disposition home or self-care (01) ==
LOC: EC 15:30
DX: T63.441A Toxic effect of venom of bees, accidental (unintentional), initial encounter (principal); I10 Essential (primary) hypertension; Z79.899 Other long term (current) drug therapy; Z88.2 Allergy status to sulfonamides; Z88.8 Allergy status to other drugs, medicaments and biological substances; Z87.891 Personal history of nicotine dependence
CPT/HCPCS: 99283; 96372; J2930

== ENCOUNTER 2020-07-21 08:54 | Emergency (ER) | payer BC ==
[2020-07-21 09:04] VITALS: RESP 18
[2020-07-21] MEDS ORDERED: MAG HYDROX/AL HYDROX/SIMETH 30 ML, HYOSCYAMINE ELIXIR 10 ML PO STA ×2 (09:16)
[2020-07-21] MEDS ORDERED: SODIUM CHLORIDE 0.9% 1,000 ML IV STA (09:16)
[2020-07-21 09:46] LABS: Albumin 4.5 g/dL (3.5-5.0); Calcium 9.5 mg/dL (8.4-10.2); Magnesium 1.9 mg/dL (1.6-2.3); Potassium 3.8 mmol/L (3.5-5.1); Total Protein 6.8 g/dL (6.3-8.2)
[2020-07-21 09:48] LABS: Basophils % (A) 1 %; Eosinophils # (A) 0.2 k/uL (0-0.7); Eosinophils % (A) 4 %; HGB 16.8 gm/dL (11.4-16.0); Lymphocytes # (A) 0.8 k/uL (1.0-4.8); Lymphocytes % (A) 16 %; MCH 32.6 pg (25.0-35.0); MCHC 35.7 g/dL (31.0-37.0); MCV 91.2 fL (80.0-100.0); Mean Platelet Volume 7.6; Monocytes # (A) 0.2 k/uL (0-1.0); Monocytes % (A) 5 %; Neutrophils # (A) 3.4 k/uL (1.3-7.7); Neutrophils % (A) 73 %; Platelet Count 178 k/uL (150-450); RBC 5.15 m/uL (3.80-5.40); RDW 13.7 % (11.5-15.5); WBC 4.7 k/uL (3.8-10.6)
[2020-07-21] MEDS ORDERED: hydrALAZINE HCL 20 MG/ML 1 ML VIAL IVP STA (10:03)
--- NOTE | 2020-07-21 10:03 | ED ---
Recheck HPI - General Chief Complaint: Recheck/Abnormal Lab/Rx Stated Complaint: hypertension Time Seen by Provider: 07/21/20 09:04 Source: patient, RN notes reviewed Mode of arrival: wheelchair Limitations: no limitations - History of Present Illness Initial Comments: 59-year-old female presents emergency Department with chief complaint of high blood pressure. Patient's blood pressures been up and down over the last week. Patient states only recent change was she was stung by a bee. Patient did follow-up with her PCP yesterday in which her blood pressure was elevated 240/110. Patient was given clonidine and discharged. Patient was recommended started on new blood pressure medication though she declined stating that she wants to figure out what is causing her blood pressure issue. Patient's extremity blood pressure last night it was improved. Patient woke up this morning and checked it again which was elevated though she did not take her labetalol yet. Patient has no current chest pain shortness breath. She does have some ongoing reflux issues in which she was prescribed antacids by her PCP. She has any leg pain, leg swelling no fevers chills no other change in medications. - Related Data Home Medications Medication Instructions Recorded Confirmed Aspirin EC [Ecotrin Low Dose] 81 mg PO DAILY PRN 07/21/20 07/21/20 Labetalol [Trandate] 200 mg PO BID 07/21/20 07/21/20 Multivitamins, Thera [Multivitamin 1 tab PO DAILY 07/21/20 07/21/20 (formulary)] Omeprazole 40 mg PO DAILY 07/21/20 07/21/20 Previous Rx's Medication Instructions Recorded Ezetimibe [Zetia] 10 mg PO DAILY #90 tab 02/22/19 lisinopriL [Zestril] 10 mg PO DAILY #30 tab 07/21/20 Allergies Allergy/AdvReac Type Severity Reaction Status Date / Time amlodipine [From Norvasc] Allergy Unknown Verified 07/21/20 10:34 Sulfa (Sulfonamide Allergy Unknown Verified 07/21/20 10:34 Antibiotics) aspirin AdvReac Unknown Verified 07/21/20 10:34 hydrochlorothiazide AdvReac Cough Verified 07/21/20 10:36 ibuprofen [From Motrin] AdvReac Unknown Verified 07/21/20 10:34 Review of Systems ROS Statement: Those systems with pertinent positive or pertinent negative responses have been documented in the HPI. ROS Other: All systems not noted in ROS Statement are negative. Past Medical History Past Medical History: Hyperlipidemia, Hypertension Additional Past Medical History / Comment(s): kidney stones History of Any Multi-Drug Resistant Organisms: None Reported Past Surgical History: Tubal Ligation Additional Past Surgical History / Comment(s): lithotripsy Past Anesthesia/Blood Transfusion Reactions: No Reported Reaction Past Psychological History: No Psychological Hx Reported Smoking Status: Former smoker Past Alcohol Use History: None Reported Past Drug Use History: None Reported - Past Family History Mother Family Medical History: Hyperlipidemia, Hypertension, Myocardial Infarction ([place]) Father Family Medical History: Cancer, Hypertension Additional Family Medical History / Comment(s): leukemia General Exam Limitations: no limitations General appearance: alert, in no apparent distress Head exam: Present: atraumatic, normocephalic, normal inspection Eye exam: Present: normal appearance, PERRL, EOMI. Absent: scleral icterus, conjunctival injection, periorbital swelling ENT exam: Present: normal exam, normal oropharynx, mucous membranes moist, TM's normal bilaterally Neck exam: Present: normal inspection, full ROM. Absent: tenderness, meningismus, lymphadenopathy Respiratory exam: Present: normal lung sounds bilaterally. Absent: respiratory distress, wheezes, rales, rhonchi, stridor Cardiovascular Exam: Present: regular rate, normal rhythm, normal heart sounds. Absent: systolic murmur, diastolic murmur, rubs, gallop, clicks GI/Abdominal exam: Present: soft, normal bowel sounds. Absent: distended, tenderness, guarding, rebound, rigid Back exam: Absent: CVA tenderness (R), CVA tenderness (L) Neurological exam: Present: alert, oriented X3 Skin exam: Present: warm, dry, intact, normal color. Absent: rash Course Vital Signs 07/21/20 08:59 Temperature 99 F Pulse Rate 80 Respiratory 18 Rate Blood Pressure 189/92 O2 Sat by Pulse 98 Oximetry Medical Decision Making - Medical Decision Making Patient had lab work which is reviewed no acute changes EKG unremarkable. Patient is very anxious and worried about her blood pressure. Patient was started on blood pressure medication she has a follow-up in 2 weeks she is advised follow-up with primary before this. Return parameters were discussed. - Lab Data Result diagrams: 07/21/20 09:23 07/21/20 09:23 Lab Results 07/21/20 07/21/20 07/21/20 Range/Units 09:23 09:23 09:23 WBC 4.7 (3.8-10.6) k/uL RBC 5.15 (3.80-5.40) m/uL Hgb 16.8 H (11.4-16.0) gm/dL Hct 47.0 H (34.0-46.0) % MCV 91.2 (80.0-100.0) fL MCH 32.6 (25.0-35.0) pg MCHC 35.7 (31.0-37.0) g/dL RDW 13.7 (11.5-15.5) % Plt Count 178 (150-450) k/uL Neutrophils % 73 % Lymphocytes % 16 % Monocytes % 5 % Eosinophils % 4 % Basophils % 1 % Neutrophils # 3.4 (1.3-7.7) k/uL Lymphocytes # 0.8 L (1.0-4.8) k/uL Monocytes # 0.2 (0-1.0) k/uL Eosinophils # 0.2 (0-0.7) k/uL Basophils # 0.0 (0-0.2) k/uL Sodium 137 (137-145) mmol/L Potassium 3.8 (3.5-5.1) mmol/L Chloride 107 (98-107) mmol/L Carbon Dioxide 24 (22-30) mmol/L Anion Gap 6 mmol/L BUN 19 H (7-17) mg/dL Creatinine 1.02 (0.52-1.04) mg/dL Est GFR (CKD-EPI)AfAm 70 (>60 ml/min/1.73 sqM) Est GFR (CKD-EPI)NonAf 61 (>60 ml/min/1.73 sqM) Glucose 131 H (74-99) mg/dL Calcium 9.5 (8.4-10.2) mg/dL Magnesium 1.9 (1.6-2.3) mg/dL Total Bilirubin 1.0 (0.2-1.3) mg/dL AST 31 (14-36) U/L ALT 28 (4-34) U/L Alkaline Phosphatase 144 H (38-126) U/L Troponin I <0.012 (0.000-0.034) ng/mL Total Protein 6.8 (6.3-8.2) g/dL Albumin 4.5 (3.5-5.0) g/dL - EKG Data -: EKG Interpreted by Me EKG Comments: EKG performed at 9:56 normal sinus rhythm rate of 62 MD 128 QRS 90 QT/QTC 414/ 420 Disposition Clinical Impression: Hypertension Disposition: HOME SELF-CARE Condition: Stable Instructions (If sedation given, give patient instructions): Hypertension (ED) Additional Instructions: Please return to the Emergency Department if symptoms worsen or any other concerns. Prescriptions: lisinopriL [Zestril] 10 mg PO DAILY #30 tab Is patient prescribed a controlled substance at d/c from ED?: No Referrals: Cristino Butterfield DO [Primary Care Provider] - 1-2 days Time of Disposition: 10:57
[2020-07-21] MEDS ORDERED: lisinopriL 10 MG TAB PO STA (10:56)
[2020-07-21 11:13] VITALS: BP 168/75; PULSE 98; TEMP 98.5
== END 2020-07-21 11:18 | disposition home or self-care (01) ==
LOC: EC 08:54
DX: I10 Essential (primary) hypertension (principal); K21.9 Gastro-esophageal reflux disease without esophagitis; Z79.899 Other long term (current) drug therapy; Z88.2 Allergy status to sulfonamides; Z88.6 Allergy status to analgesic agent; Z88.8 Allergy status to other drugs, medicaments and biological substances; Z87.891 Personal history of nicotine dependence; Z87.442 Personal history of urinary calculi
CPT/HCPCS: 36415; 93005; 80053; 83735; 84484; 85025; 99283; 96374; 96361; J0360

== ENCOUNTER → 2020-08-15 | Outpatient (CLI) | payer BC ==
--- NOTE | 2020-08-16 06:57 | CT ---
EXAMINATION TYPE: CT abdomen pelvis wo con DATE OF EXAM: 08/15/2020 HISTORY: abdominal pain, pancreatitis per order. CT DLP: 396 mGycm. Automated Exposure Control for Dose Reduction was Utilized. TECHNIQUE: CT scan of the abdomen and pelvis is performed with oral but without IV contrast. COMPARISON: Ultrasound abdomen December 24, 2013 FINDINGS: Within the limitations of a non-contrast study, the following observations are made. LUNG BASES: No significant abnormality is appreciated. LIVER/GB: Interval cholecystectomy with new clips. PANCREAS: Pancreas overall normal in size. No surrounding fat stranding or suspicious focal fluid col lection. SPLEEN: No significant abnormality is seen. ADRENALS: No significant abnormality is seen. KIDNEYS: There is large 2.6 cm right renal calculus in the pelvis causing mild to moderate pyelocalie ctasis. There are 2-3 smaller upper pole right renal calculi measuring up to 4 mm in size. Redemonstration of asymmetrically enlarged left kidney with multiple thin-walled cysts of varying siz e and shape, inferior cyst has curvilinear dependent calcification and punctate 3 mm dependent calcif ication. Local mass effect on left intra-abdominal structures noted. Fullness of left renal pelvis se en. Poor visualization of calyces. There is proximal hydroureter up to obstructing 13 mm proximal lef t ureter calculus coronal image 44. No distal hydroureter. No intraluminal calculi in the poorly dist ended bladder. BOWEL: Small sized hiatal hernia. Normal-appearing appendix extending from cecum. Oral contrast reach es rectum. No suspicious small large bowel dilatation. GENITAL ORGANS: Anteverted uterus. LYMPH NODES: No greater than 1cm abdominal or pelvic lymph nodes are appreciated. OSSEOUS STRUCTURES: Facet arthropathy mid to lower lumbar levels. OTHER: Mild to moderate calcified plaque of the aorta extends into branch vessels. IMPRESSION: 1. No CT evidence for complication related to pancreatitis on study performed without IV contrast. 2. Persistent enlarged multicystic left kidney with local mass effect. Correlate for underlying conge nital multicystic dysplastic kidney. Obstructing 13 mm proximal left ureter calculus causing moderate to severe proximal hydroureter. Uncertain functional status of left kidney. Correlate clinically. 3. There is likely partial obstructing 2.6 cm calculus at right pelvis causing [id number] right -sided hydronephrosis. Additional smaller nonobstructing upper pole right renal calculi noted.
== END | disposition home or self-care (01) ==
LOC: RADCTMAIN 15:53
PROVIDERS: ATTEND Family Medicine
DX: N13.2 Hydronephrosis with renal and ureteral calculous obstruction (principal); K85.90 Acute pancreatitis without necrosis or infection, unspecified; R10.10 Upper abdominal pain, unspecified; Z87.11 Personal history of peptic ulcer disease
CPT/HCPCS: 74176

== ENCOUNTER → 2020-08-22 | Outpatient (CLI) | payer BC ==
[2020-08-22 14:41] LABS: Calcium 10.1 mg/dL (8.4-10.2); Potassium 4.4 mmol/L (3.5-5.1)
[2020-08-22 14:46] LABS: Basophils # (A) 0.1 k/uL (0-0.2); Basophils % (A) 1 %; Eosinophils # (A) 0.2 k/uL (0-0.7); Eosinophils % (A) 3 %; HGB 16.2 gm/dL (11.4-16.0); Lymphocytes # (A) 1.4 k/uL (1.0-4.8); Lymphocytes % (A) 22 %; MCH 29.6 pg (25.0-35.0); MCHC 31.7 g/dL (31.0-37.0); MCV 93.2 fL (80.0-100.0); Mean Platelet Volume 7.4; Monocytes # (A) 0.4 k/uL (0-1.0); Monocytes % (A) 7 %; Neutrophils # (A) 3.9 k/uL (1.3-7.7); Neutrophils % (A) 65 %; Platelet Count 214 k/uL (150-450); RBC 5.47 m/uL (3.80-5.40); RDW 13.4 % (11.5-15.5); WBC 6.1 k/uL (3.8-10.6)
== END | disposition home or self-care (01) ==
LOC: LABPAT 13:42
PROVIDERS: ATTEND Urology
DX: Z01.818 Encounter for other preprocedural examination (principal); N20.1 Calculus of ureter
CPT/HCPCS: 36415; 80048; 85025

== ENCOUNTER 2020-08-29 12:29 | Observation (INO) | payer BC ==
--- NOTE | 2020-08-24 08:30 | P.GSHP ---
History of Present Illness H&P Date: 08/24/20 Chief Complaint: Upper abdominal pain The patient is a 60-year-old white female with a history of urolithiasis. She has previously undergone ESWL and PCNL. She has recently experienced pain beneath her rib cage bilaterally. A computed tomography scan shows a multicystic left kidney with a 13 mm left proximal ureteral calculus. Additionally, a 2.6 cm right renal pelvic calculus causing mild hydronephrosis is seen. She now comes for ureteroscopic removal of the proximal ureteral calculus. She will subsequently be advised to undergo a right percutaneous nephrolithotomy (PCNL). - Constitutional Constitutional: Denies chills, Denies fever - Gastrointestinal Gastrointestinal: Reports nausea, Denies vomiting - Genitourinary (Female) Genitourinary: Reports kidney stones, Denies hematuria Past Medical History Past Medical History: Hyperlipidemia, Hypertension Additional Past Medical History / Comment(s): kidney stones History of Any Multi-Drug Resistant Organisms: None Reported Past Surgical History: Tubal Ligation Additional Past Surgical History / Comment(s): lithotripsy Past Anesthesia/Blood Transfusion Reactions: No Reported Reaction Past Psychological History: No Psychological Hx Reported Smoking Status: Former smoker Past Alcohol Use History: None Reported Past Drug Use History: None Reported - Past Family History Mother Family Medical History: Hyperlipidemia, Hypertension, Myocardial Infarction ([place]) Father Family Medical History: Cancer, Hypertension Additional Family Medical History / Comment(s): leukemia Medications and Allergies Home Medications Medication Instructions Recorded Confirmed Type Ezetimibe [Zetia] 10 mg PO DAILY #90 tab 02/22/19 07/21/20 Rx Aspirin EC [Ecotrin Low Dose] 81 mg PO DAILY PRN 07/21/20 07/21/20 History Labetalol [Trandate] 200 mg PO BID 07/21/20 07/21/20 History Multivitamins, Thera [Multivitamin 1 tab PO DAILY 07/21/20 07/21/20 History (formulary)] Omeprazole 40 mg PO DAILY 07/21/20 07/21/20 History lisinopriL [Zestril] 10 mg PO DAILY #30 tab 07/21/20 Rx Allergies Allergy/AdvReac Type Severity Reaction Status Date / Time amlodipine [From [facility]] Allergy Unknown Verified 07/21/20 10:34 Sulfa (Sulfonamide Allergy Unknown Verified 07/21/20 10:34 Antibiotics) aspirin AdvReac Unknown Verified 07/21/20 10:34 hydrochlorothiazide AdvReac Cough Verified 07/21/20 10:36 ibuprofen [From Motrin] AdvReac Unknown Verified 07/21/20 10:34 Surgical - Exam - General well developed, well nourished, no distress - Neck no masses, trachea midline - Respiratory normal respiratory effort, clear to auscultation - Cardiovascular Rhythm: regular Abnormal Heart Sounds: no systolic murmur, no diastolic murmur, no rub, no S3 Gallop, no S4 Gallop, no click, no other - Abdomen Abdomen: soft, non tender, no guarding, no rigid, no rebound - Psychiatric oriented to time, oriented to person, oriented to place, speech is normal, memory intact Results - Imaging CT scan - abdomen: report reviewed, image reviewed Assessment and Plan Plan: Cystoscopy, left ureteroscopy with Holmium laser lithotripsy, left ureteral stent insertion. The procedure has been reviewed in detail with the patient. She is aware of potential risks, which include anesthesia, bleeding, infection, and ureteral injury.
[2020-08-27 15:19] VITALS: BMI 29.2
[~2020-08-29 12:29] MED LIST changes: -HEPARIN SODIUM,PORCINE 5,000 UNIT/ML 1 ML VIAL SQ ONE; -HYDROmorphone 0.5 MG/0.5 ML SYRINGE IVP PRN; -LACTATED RINGERS 1,000 ML IV SCH; +LIDOCAINE 1% (10MG/ML) FOR IV START INTRADERMA PRN; -LIDOCAINE 1% 20 ML VIAL (10MG/ML) FOR IV START INTRADERMA PRN; -MIDAZOLAM 2 MG/2 ML VIAL IV PRN; +ONDANSETRON 4 MG/2 ML VIAL IVP ONE; -SCOPOLAMINE 1.5MG/72HR PATCH TRANSDERM ONE
--- NOTE | 2020-08-29 12:50 | XR ---
EXAMINATION TYPE: XR KUB DATE OF EXAM: 08/29/2020 HISTORY: Pain Comparison: None.Single KUB is submitted for interpretation. Findings: Right renal calculi: Large calculus in the region of the right renal pelvis measuring 3.2 cm. Smaller 3 mm calculus upper pole right kidney. Right ureteral calculi: None Visualized. Left renal calculi: None Visualized. Left ureteral calculi: None Visualized. Pelvic calcifications: None Visualized. Bowel gas pattern is unremarkable. No free air. No mass effects. IMPRESSION: 1. As above
[2020-08-29] MEDS: LACTATED RINGERS 1,000 ML IV SCH (13:13)
[2020-08-29] MEDS ORDERED: SUCCINYLCHOLINE CHLORIDE 100 MG/5 ML SYR IV ONE (13:47)
[2020-08-29] MEDS ORDERED: fentaNYL (PF) 50 MCG/ML 2 ML AMP ONE (13:47)
[2020-08-29] MEDS ORDERED: MIDAZOLAM 2 MG/2 ML VIAL ONE (13:47)
[2020-08-29] MEDS ORDERED: ALBUTEROL INHALER 60 PUFF/8 GM INHALER (MHU) INHALATION ONE (13:47)
[2020-08-29] MEDS ORDERED: LIDOCAINE 1% INJ 10MG/ML (20 ML MDV) ONE (13:47)
[2020-08-29] MEDS ORDERED: PHENYLEPHRINE-0.9% NACL SYG 1 MG/10 ML SYRINGE ONE (13:47)
[2020-08-29] MEDS ORDERED: PROPOFOL 10 MG/ML 20 ML VIAL IV ONE (13:47)
[2020-08-29] MEDS ORDERED: LACTATED RINGERS 1,000 ML IV ONE (15:53)
[2020-08-29] MEDS ORDERED: diphenhydrAMINE 50 MG/ML 1 ML VIAL IVP ONE (16:15)
--- NOTE | 2020-08-29 16:16 | P.OP ---
Date of Procedure: 08/29/20 Preoperative Diagnosis: left ureteral calculus Postoperative Diagnosis: same Procedure(s) Performed: cystoscopy, left ureteroscopy with Holmium laser lithotripsy, left ureteral stent insertion Anesthesia: FREEMANA Surgeon: Isac Sahni Estimated Blood Loss (ml): 0 IV fluids (ml): 1,200 Pathology: none sent Condition: stable Disposition: PACU Indications for Procedure: The patient is a 60-year-old white female with a history of urolithiasis. She has previously undergone ESWL and PCNL. She has recently experienced pain beneath her rib cage bilaterally. A computed tomography scan shows a multicystic left kidney with a 13 mm left proximal ureteral calculus. Additionally, a 2.6 cm right renal pelvic calculus causing mild hydronephrosis is seen. She now comes for ureteroscopic removal of the proximal ureteral calculus. She will subsequently be advised to undergo a right percutaneous nephrolithotomy (PCNL). Operative Findings: Left proximal ureteral calculus, very dense, impacted. Description of Procedure: The patient was taken to the operating room and placed in the dorsolithotomy position, with legs supported in Venkat stirrups. The external genitalia was prepped and draped sterilely. The 30 lens was used to introduce the 21-[place] Rubin cystoscopic sheath through the urethra and into the bladder under direct vision. The bladder was examined in its entirety. Both ureteral orifices were normal anatomic location and configuration. No tumors or foreign bodies were seen. The Rubin semirigid ureteroscope was advanced into the bladder, and the left ureteral orifice was cannulated. The ureteroscope was slowly advanced under direct vision, up to the left proximal ureter, where the calculus was identified. The 272 micron Holmium laser probe was passed through the uretero scope, and lithotripsy was performed. initially, a dusting technique was attempted, but the calculus was extremely dense and therefore a fragmenting mode was used. The laser fiber broke, and was replaced with a 365 fiber. As the calculus fragmented, it became apparent that the calculus was impacted and the peripheral aspects of the calculus were embedded into the mucosa. The ureter was edematous, and ultimately the procedure was terminated. The peripheral portions of the calculus embedded within the mucosa were not removed. The Glidewire was passed through the ureteroscope and advanced up to the left renal pelvis. The ureteroscope was removed. The Glidewire was backloaded into the cystoscope, which was passed into the bladder. A 24 cm, 6-[place] double-J ureteral stent was placed over the wire. Proper stent positioning was verified fluoroscopically and endoscopically. The bladder was emptied and the cystoscope removed. The patient tolerated the procedure well and was taken to the recovery room in stable condition.
[2020-08-29] MEDS: HYDROmorphone 0.5 MG/0.5 ML SYRINGE IVP PRN ×5 (16:20→18:38)
--- NOTE | 2020-08-29 16:23 | FL ---
Fluoroscopy HISTORY: Left ureteral calculus 28 seconds fluoroscopy time supplied to the referring clinician. 2 intraoperative C-arm images docum ent the procedure. See dictated report from urology.
[2020-08-29] MEDS ORDERED: LABETALOL SYRINGE 5 MG/ML IVP ONE (16:35)
[2020-08-29] MEDS ORDERED: hydrALAZINE HCL 20 MG/ML 1 ML VIAL IVP ONE (16:55)
--- NOTE | 2020-08-29 17:11 | P.PN ---
Progress Note - Text Progress Note Date: 08/29/20 Patient is postop day 0 cystoscopy, lithotripsy, left ureteroscopy, left ureteral stent insertion. Intraoperatively patient experienced an episode of bronchospasm with peak pressures up to 35. Patient was given albuterol and bronchospasms subsided In PACU patient has been sleepy but complaining of significant pain in the abdominal area. When given IV Dilaudid, patient tends to desaturate into the high 80s. Patient has also been significantly hypertensive up to the 250 systolic. This has been refractory to labetalol and hydralazine given intravenously. We will recommended the patient is admitted to observation unit to monitor blood pressure as I'm unclear what the cause of this extremely high blood pressure is. I also ordered a chest x-ray, given the fact that she did have an episode of bronchospasm and is saturating in the high 80s to low 90s when in preop she was saturating in the high 90s. Unclear if this is some type of negative pressure pulmonary edema, as in general chest x-ray wouldn't show anything this quickly. However at this point I'm ordering this to rule out any type of pulmonary process and might be causing the decrease in oxygen saturation. Regardless and think she should be admitted overnight to slowly decrease her high blood pressure as decreasing blood pressure too rapidly can cause do a serious neurological defects
--- NOTE | 2020-08-29 17:39 | XR ---
EXAMINATION TYPE: XR chest 1V portable DATE OF EXAM: 08/29/2020 CLINICAL HISTORY: Post surgery TECHNIQUE: Portable upright view of the chest COMPARISON: Chest radiograph 02/21/2019 FINDINGS: Low lung volumes accentuates the cardiac silhouette. Pulmonary vasculature is normal. Smal l left pleural effusion versus silhouetting by the cardiac silhouette. No pneumothorax. The osseous s tructures are intact. IMPRESSION: Low lung volumes. Small left pleural effusion versus cardiac silhouetting of the left hem idiaphragm.
[2020-08-29] MEDS: HYDROcodone/APAP 5-325MG 1 EACH TAB PO PRN (20:03)
[2020-08-29] MEDS: LABETALOL 200 MG TAB PO SCH (20:03)
[2020-08-29] MEDS: DEXTROSE 5%-LACTATED RINGERS 1,000 ML IV SCH (20:04)
[2020-08-29] MEDS ORDERED: LOSARTAN 50 MG TAB PO STA (22:13)
[2020-08-29] MEDS: ONDANSETRON 4 MG/2 ML VIAL IVP PRN (22:44)
[2020-08-29] MEDS: HYDROmorphone 1 MG/ML 1 ML SYRINGE IVP PRN (23:17)
[2020-08-30] MEDS: LACTATED RINGERS 1,000 ML IV SCH (02:44)
[2020-08-30] MEDS: ONDANSETRON 4 MG/2 ML VIAL IVP PRN ×3 (06:37→19:49)
[2020-08-30] MEDS: PANTOPRAZOLE 40 MG TABLET PO SCH (06:37)
--- NOTE | 2020-08-30 08:16 | P.PN ---
Progress Note - Text Progress Note Date: 08/30/20 The patient underwent left ureteroscopy with laser lithotripsy yesterday. Her proximal ureteral calculus was impacted and adherent to the surrounding mucosa. The calculus was incompletely removed, and a ureteral stent was placed. There was no evidence of ureteral perforation. The patient was admitted postoperatively due to hypertension. Her blood pressure is now improved, but she reports nausea. She is afebrile with stable vital signs. On examination, mild left-sided tenderness is noted, without guarding or rebound. She will be discharged home later today if her nausea subsides and she is otherwise feeling well. I did discuss with the patient the fact that her left kidney is nonfunctional and that she'll most certainly will develop a ureteral stricture, whether the calculus is completely removed or not. Therefore, removal of the remaining calculus is of unclear benefit. It may be preferable to simply remove the stent, and if she develops pain perform a left nephrectomy. It is my intention to first proceed with a right percutaneous nephrolithotomy to protect her functi onal right kidney.
[2020-08-30] MEDS: LABETALOL 200 MG TAB PO SCH ×2 (08:49→20:19)
[2020-08-30] MEDS: HYDROmorphone 1 MG/ML 1 ML SYRINGE IVP PRN ×2 (11:38→19:49)
[2020-08-30] MEDS: EZETIMIBE 10 MG TAB PO SCH (11:40)
[2020-08-30] MEDS: HYDROcodone/APAP 5-325MG 1 EACH TAB PO PRN ×2 (14:15→20:18)
[2020-08-30] MEDS: DEXTROSE 5%-LACTATED RINGERS 1,000 ML IV SCH (14:19)
[2020-08-31] MEDS: HYDROmorphone 1 MG/ML 1 ML SYRINGE IVP PRN ×2 (00:11→05:46)
[2020-08-31] MEDS: HYDROcodone/APAP 5-325MG 1 EACH TAB PO PRN ×2 (02:26→10:04)
[2020-08-31] MEDS: LACTATED RINGERS 1,000 ML IV SCH (05:47)
[2020-08-31 07:19] VITALS: BP 132/71; PULSE 100; RESP 17; TEMP 98.6
[2020-08-31] MEDS: PANTOPRAZOLE 40 MG TABLET PO SCH (08:12)
--- NOTE | 2020-08-31 08:19 | P.DS ---
Providers Date of admission: 08/29/20 23:56 Expected date of discharge: 08/31/20 Attending physician: Isac Sahni Consults: 08/29/20 17:45 Consult Physician Routine Consulting Provider: Cristino Butterfield Reason/Comments: Uncontrolled Hypertension Do you want consulting provider notified?: Yes Primary care physician: Cristino Butterfield [facility] Course: On the day of admission, the patient underwent cystoscopy, left ureteroscopy with Holmium laser lithotripsy, left ureteral stent insertion. The calculus was noted to be impacted within the mucosa of the left proximal ureter, and those portions of the calculus could not be removed. The procedure was intended to be performed as an outpatient, but the patient was admitted postoperatively due to uncontrolled hypertension. Her blood pressure gradually normalized. However, she experienced persistent left-sided abdominal pain associated with nausea. It is felt to be very likely that the patient will develop a ureteral stricture whether or not the remainder of the calculus is removed. The left kidney is nonfunctional. It was ultimately decided to discharge the patient home and remove her stent later today, as this is the likely source of her pain. Arrangements will be made for her to undergo a right percutaneous nephrolithotomy to remove her large right renal pelvic calculus. If she develops left flank pain, she will be advised to undergo a left nephrectomy. Procedures: Cystoscopy, left ureteroscopy with Holmium laser lithotripsy, left ureteral stent insertion on 08/29/2020 Patient Condition at Discharge: Fair Plan - Discharge Summary Discharge Rx Participant: No New Discharge Prescriptions: New Tolterodine ER [Detrol [place]] 4 mg PO DAILY #30 cap.er.24h Tamsulosin [Flomax] 0.4 mg PO DAILY #30 cap Hydrocodone/Acetaminophen [[place] 5-325] 1 - 2 each PO Q4HR PRN #6 tab PRN Reason: Pain No Action Ezetimibe [Zetia] 10 mg PO DAILY #90 tab Omeprazole 40 mg PO DAILY Labetalol [Trandate] 200 mg PO BID Multivitamins, Thera [Multivitamin (formulary)] 1 tab PO DAILY [place]-3 Acid Ethyl Esters [Lovaza] 4 gm PO DAILY Discharge Medication List Ezetimibe [Zetia] 10 mg PO DAILY #90 tab 02/22/19 [Rx] Labetalol [Trandate] 200 mg PO BID 07/21/20 [History] Multivitamins, Thera [Multivitamin (formulary)] 1 tab PO DAILY 07/21/20 [History] Omeprazole 40 mg PO DAILY 07/21/20 [History] [place]-3 Acid Ethyl Esters [Lovaza] 4 gm PO DAILY 08/27/20 [History] Tamsulosin [Flomax] 0.4 mg PO DAILY #30 cap 08/29/20 [Rx] Tolterodine ER [Detrol [place]] 4 mg PO DAILY #30 cap.er.24h 08/29/20 [Rx] Hydrocodone/Acetaminophen [[place] 5-325] 1 - 2 each PO Q4HR PRN #6 tab 08/31/20 [Rx] Follow up Appointment(s)/Referral(s): Isac Sahin MD [STAFF PHYSICIAN] - 08/31/20 Activity/Diet/Wound Care/Special Instructions: Diet as tolerated. Activity as tolerated. Patient will be seen in Dr. Sahni' office later today to undergo office cystoscopy with stent removal. Discharge Disposition: HOME SELF-CARE
[2020-08-31] MEDS: EZETIMIBE 10 MG TAB PO SCH (10:04)
[2020-08-31] MEDS: LABETALOL 200 MG TAB PO SCH (10:04)
== END 2020-08-31 13:51 | disposition home or self-care (01) ==
LOC: OR 12:29 → 3SCARD 18:06 → OR 23:56 → 3SCARD 23:56 → OR 08-30 00:24 → 3SCARD 08-30 00:24 → 4SSUR 08-30 21:32
PROVIDERS: ADMIT Urology; ATTEND Urology
DX: N13.2 Hydronephrosis with renal and ureteral calculous obstruction (principal); I10 Essential (primary) hypertension; E78.5 Hyperlipidemia, unspecified; Z87.442 Personal history of urinary calculi; K21.9 Gastro-esophageal reflux disease without esophagitis; Z87.891 Personal history of nicotine dependence; Z87.11 Personal history of peptic ulcer disease; Z90.49 Acquired absence of other specified parts of digestive tract; Z98.51 Tubal ligation status; Z82.49 Family history of ischemic heart disease and other diseases of the circulatory system; Z83.438 Family history of other disorder of lipoprotein metabolism and other lipidemia; Z80.6 Family history of leukemia; Z79.899 Other long term (current) drug therapy; Z88.6 Allergy status to analgesic agent; Z88.2 Allergy status to sulfonamides; Z88.8 Allergy status to other drugs, medicaments and biological substances
CPT/HCPCS: 52356; 71045; 74018; G0378 ×3; C2625; J2250; J0360; J1200; J1100; J0690; J2405 ×2; J2001; J3010; J1170 ×4; J2370; J0330; J2704

== ENCOUNTER → 2020-09-19 | Outpatient (CLI) | payer BC ==
[2020-09-19 15:33] LABS: Basophils % (A) 1 %; Eosinophils # (A) 0.1 k/uL (0-0.7); Eosinophils % (A) 2 %; HCT 44.9 % (34.0-46.0); HGB 14.2 gm/dL (11.4-16.0); Lymphocytes # (A) 1.3 k/uL (1.0-4.8); Lymphocytes % (A) 26 %; MCH 30.2 pg (25.0-35.0); MCHC 31.7 g/dL (31.0-37.0); MCV 95.5 fL (80.0-100.0); Mean Platelet Volume 6.8; Monocytes # (A) 0.3 k/uL (0-1.0); Monocytes % (A) 6 %; Neutrophils # (A) 3.3 k/uL (1.3-7.7); Neutrophils % (A) 64 %; Platelet Count 299 k/uL (150-450); RDW 13.5 % (11.5-15.5); WBC 5.2 k/uL (3.8-10.6)
[2020-09-19 15:36] LABS: Appearance,Urine Clear (Clear); Bacteria,Urine Occasional /hpf; Bilirubin,Urine Negative (Negative); Blood,Urine Trace (Negative); Color,Urine Light Yellow; Glucose,Urine (UA) Negative (Negative); Ketones,Urine Negative (Negative); Leukocyte Esterase,Urine Moderate (Negative); Mucus,Urine Rare /hpf; Nitrite,Urine Negative (Negative); PH, Urine 6.5 (5.0-8.0); Protein,Urine 2+ (Negative); RBC,Urine 12 /hpf (0-5); Specific Gravity,Urine 1.013 (1.001-1.035); Squamous Epithelial Cell,Urine 5 /hpf (0-4); Urobilinogen,Urine <2.0 mg/dL (<2.0); WBC,Urine 25 /hpf (0-5)
[2020-09-19 15:55] LABS: Calcium 9.7 mg/dL (8.4-10.2)
== END | disposition home or self-care (01) ==
LOC: LABPAT 13:37
PROVIDERS: ATTEND Urology
DX: Z01.818 Encounter for other preprocedural examination (principal); N20.0 Calculus of kidney
CPT/HCPCS: 80048; 81001; 82150; 83690; 85025; 87086

== ENCOUNTER → 2020-09-19 | Outpatient (CLI) | payer BC | END | disposition home or self-care (01) | LOC: LABWHC1 13:40 | PROVIDERS: ATTEND Family Medicine | DX: Z53.9 Procedure and treatment not carried out, unspecified reason (principal) ==

== ENCOUNTER 2020-09-28 08:23 | Observation (INO) | payer BC ==
[2020-09-26 14:43] VITALS: BMI 28.1
--- NOTE | 2020-09-27 16:52 | P.GSHP ---
History of Present Illness H&P Date: 09/27/20 59 yo female with a history of urolithiasis. Was recently treated with left ureteroscopy and laser lithotripsy for a 13mm left ureteral stone. The left rzaiainelor is multicystic. SHe has a 2.6 cm right renal pelvic stone. SHe cones for a right pcnl to remove that large right renal stone. - Constitutional Constitutional: Denies chills, Denies fever - EENT Eyes: denies blurred vision, denies pain Ears, nose, mouth and throat: Denies headache, Denies sore throat - Cardiovascular Cardiovascular: Denies chest pain, Denies shortness of breath - Respiratory Respiratory: Denies cough, Denies 7 - Gastrointestinal Gastrointestinal: Denies abdominal pain, Denies diarrhea, Denies nausea, Denies vomiting - Genitourinary (Female) Genitourinary: Denies dysuria, Denies hematuria - Genitourinary (Male) Genitourinary: Denies dysuria, Denies hematuria - Musculoskeletal Musculoskeletal: Denies myalgias - Integumentary Integumentary: Denies pruritus, Denies rash - Neurological Neurological: Denies numbness, Denies weakness - Psychiatric Psychiatric: Denies anxiety, Denies depression - Endocrine Endocrine: Denies fatigue, Denies weight change Past Medical History Past Medical History: GERD/Reflux, Hyperlipidemia, Hypertension, Pneumonia Additional Past Medical History / Comment(s): kidney stones, History of Any Multi-Drug Resistant Organisms: None Reported Past Surgical History: Cholecystectomy, Tubal Ligation Additional Past Surgical History / Comment(s): lithotripsy, cystoscopy/left ureteroscopy 08/30/20-unable to remove stone Past Anesthesia/Blood Transfusion Reactions: Postoperative Nausea & Vomiting (PONV) Smoking Status: Former smoker - Past Family History Mother Family Medical History: Hyperlipidemia, Hypertension, Myocardial Infarction ([place]) Father Family Medical History: Cancer Additional Family Medical History / Comment(s): leukemia Medications and Allergies Home Medications Medication Instructions Recorded Confirmed Type Ezetimibe [Zetia] 10 mg PO DAILY #90 tab 02/22/19 09/26/20 Rx Labetalol [Trandate] 200 mg PO BID 07/21/20 09/26/20 History Omeprazole 40 mg PO DAILY 07/21/20 09/26/20 History [place]-3 Acid Ethyl Esters [Lovaza] 2 gm PO BID 08/27/20 09/26/20 History Tamsulosin [Flomax] 0.4 mg PO DAILY #30 cap 08/29/20 09/26/20 Rx Tolterodine ER [Detrol LA] 4 mg PO DAILY #30 cap.er.24h 08/29/20 09/26/20 Rx Allergies Allergy/AdvReac Type Severity Reaction Status Date / Time amlodipine [From Norvasc] Allergy HANDS AND Verified 09/26/20 14:34 FEET SWELL Sulfa (Sulfonamide Allergy Abdominal Verified 09/26/20 14:34 Antibiotics) Pain, nausea aspirin AdvReac DX WITH Verified 09/26/20 14:34 STOMACH ULCER hydrochlorothiazide AdvReac Cough Verified 09/26/20 14:34 ibuprofen [From Motrin] AdvReac DX WITH Verified 09/26/20 14:34 STOMACH ULCER Surgical - Exam - General well developed, well nourished, no distress - Eyes PERRL - ENT no hearing loss - Neck trachea midline - Respiratory normal expansion, normal respiratory effort - Cardiovascular Rhythm: regular - Abdomen Abdomen: soft, non tender - Integumentary no rash, no growths - Neurologic normal coordination, normal sensation - Musculoskeletal normal gait, normal posture - Psychiatric oriented to time, oriented to person, oriented to place, speech is normal, memory intact Results - Imaging CT scan - abdomen: report reviewed, image reviewed CT scan - pelvis: report reviewed, image reviewed Assessment and Plan Assessment: Impression: Large right renal pelvic stone Plan: Right PCNL
[~2020-09-28 08:23] MED LIST changes: -LIDOCAINE 1% (10MG/ML) FOR IV START INTRADERMA PRN
--- NOTE | 2020-09-28 08:41 | XR ---
EXAMINATION TYPE: XR KUB DATE OF EXAM: 09/28/2020 COMPARISON: 08/29/2020 INDICATION: Renal stones TECHNIQUE: Single view abdomen frontal projection FINDINGS: Is a nonspecific bowel gas pattern. Air is within the ascending colon. Nonspecific small bowel gas is present within the left midabdomen. Psoas margins are normal. No organomegaly is present. There is a 3.2 cm calcification within the right renal pelvis. Previous right upper pole renal stone is not identified. There is a new calcification adjacent to the transverse process of the left L5 lev el measuring 1.4 x 0.8 cm. IMPRESSION: 1. Right renal pelvic stone is stable grade 2. There may be a new mid left ureteral stone measuring 1.4 x 0.8 cm.
[2020-09-28] MEDS: LACTATED RINGERS 1,000 ML IV SCH (09:20)
[2020-09-28] MEDS ORDERED: SCOPOLAMINE 1.5MG/72HR PATCH TRANSDERM ONE (09:25)
[2020-09-28] MEDS ORDERED: MIDAZOLAM 2 MG/2 ML VIAL IV ONE (09:31)
[2020-09-28] MEDS ORDERED: LIDOCAINE 1% INJ 10MG/ML (20 ML MDV) ONE (10:04)
[2020-09-28] MEDS ORDERED: GLYCOPYRROLATE 0.2 MG/ML 2 ML VIAL ONE (10:04)
[2020-09-28] MEDS ORDERED: PROPOFOL 10 MG/ML 20 ML VIAL IV ONE (10:04)
[2020-09-28] MEDS ORDERED: SUCCINYLCHOLINE CHLORIDE 100 MG/5 ML SYR IV ONE (10:04)
[2020-09-28] MEDS ORDERED: NEOSTIGMINE 1 MG/ML 10 ML VIAL ONE (10:04)
[2020-09-28] MEDS ORDERED: MIDAZOLAM 2 MG/2 ML VIAL ONE (10:04)
[2020-09-28] MEDS ORDERED: ROCURONIUM 10 MG/ML (10 ML VIAL) IV ONE (10:04)
[2020-09-28] MEDS ORDERED: fentaNYL (PF) 50 MCG/ML 2 ML AMP ONE (10:04)
[2020-09-28] MEDS ORDERED: IOPAMIDOL-300 50ML BTL MISCELLANE ONE (10:40)
[2020-09-28] MEDS ORDERED: LACTATED RINGERS 1,000 ML IV ONE (11:37)
[2020-09-28] MEDS ORDERED: MAG HYDROX/AL HYDROX/SIMETH 30 ML CUP PO PRN (12:10)
[2020-09-28] MEDS ORDERED: ACETAMINOPHEN TAB 325 MG TAB PO PRN (12:10)
[2020-09-28] MEDS ORDERED: ONDANSETRON 4 MG/2 ML VIAL IVP PRN (12:10)
[2020-09-28] MEDS ORDERED: NALOXONE 0.4 MG/ML 1 ML VIAL IV PRN (12:11)
[2020-09-28] MEDS ORDERED: HYDROmorphone PCA 10 MG/50 ML BAG IV PRN (12:11)
--- NOTE | 2020-09-28 12:16 | P.OP ---
Date of Procedure: 09/28/20 Preoperative Diagnosis: Right renal calculus large Postoperative Diagnosis: Same Procedure(s) Performed: Cystoscopy, placement of occluding balloon catheter right, percutaneous nephrostomy (Dr. Black), percutaneous nephrostolithotomy at [facility] ent of 10 J nephrostomy Anesthesia: ILENE Surgeon: Natalio Mcrae Estimated Blood Loss (ml): 50 Pathology: other (Stone) Condition: stable Disposition: PACU Indications for Procedure: Patient is 60. She has a over 3 cm right open pelvic stone with pain. She comes for percutaneous nephrostolithotomy right Description of Procedure: The patient is brought to the operating suite. She is given a general endotracheal anesthesia on the transport gurney. She's placed in a frog position with a sterile prep and drape. Cystoscopy Foroblique lens and a 1- [place] sheath identifies a normal right ureteral orifice. It is intubated with a 5-[place]izean occluding balloon catheter passed up to the UPJ. The cystoscope removed and a 16-Belizean Boyd catheters placed and secured to the ureteral catheter. This in a prone position with care to airways and extremities. After sterile prep and drape Dr. Bustamante performed percutaneous access to the posterior I then dilate the tract to 30-Belizean and introduced a working sheath. I removed blood clot and then identify the large renal pelvic stone. With the ultrasonic lithotripter I break the stone into smaller pieces and grasped the smaller pieces with the rigid grasping forceps. After I remove everything visible or pass a flexible nephroscope throughout the collecting system. Identify a fragment at the UPJ and remove the stone basket. I then pass a 10-Belizean J nephrostomy tube in the collecting system. Its position is confirmed fluoroscopically. It is secured to the skin with 2-0 silk. The patient's awake and returned recovery in good condition. She tolerated procedure well and will be placed in the hospital postoperatively. Blood loss is approximately 50 mL.
[2020-09-28] MEDS ORDERED: hydrALAZINE HCL 20 MG/ML 1 ML VIAL IVP ONE (13:00)
[2020-09-28] MEDS: HYDROmorphone 0.5 MG/0.5 ML SYRINGE IVP PRN ×2 (13:10→13:16)
--- NOTE | 2020-09-28 14:05 | FL ---
EXAMINATION TYPE: FL Perc Nephrostomy New Access DATE OF EXAM: 09/28/2020 COMPARISON: CT 08/15/2020, KUB 08/29/2020 HISTORY: Right nephrolithiasis. PROCEDURE: Maximal barrier technique was utilized, hand hygiene obtained with soap and water and alcohol-based h and rub. The skin overlying the right kidney was localized using fluoroscopy and the overlying skin prepped and draped. Skin dena was made with a scalpel. Access was gained under fluoroscopy, followin g placement of a ureteral occlusion balloon by the referring clinician and instillation of air in the renal collecting system with a 21-gauge needle to posterior right kidney. A suitable posterior lotus x was chosen. A 0.018 inch wire was advanced. The access site was dilated , access site was upsize d, safety wire deployed and subsequently a sheath was advanced into the renal pelvis following dilati on with balloon along the tract. The patient underwent nephrolithotomy by the referring clinician. The patient remained in stable condition without complication. The patient was discharged to [facility] in the care of anesthesia. 1 minute 10 seconds fluoroscopy time, 4 intraoperative images document the procedure IMPRESSION: STATUS POST NEPHROSTOMY PLACEMENT FOR NEPHROLITHOTOMY WITH FLUOROSCOPIC GUIDANCE. THIS PROCEDURE PER FORMED BY THE UNDERSIGNED.
[2020-09-28] MEDS: DEXTROSE 5%-0.45% NACL 1,000 ML IV SCH ×2 (15:11→23:30)
[2020-09-28] MEDS ORDERED: METOCLOPRAMIDE 5 MG/ML 2 ML VIAL IVP PRN (19:33)
[2020-09-28] MEDS: LABETALOL 200 MG TAB PO SCH (23:24)
[2020-09-29] MEDS: LACTATED RINGERS 1,000 ML IV SCH (04:29)
[2020-09-29] MEDS ORDERED: PANTOPRAZOLE 40 MG TABLET PO SCH (07:30)
[2020-09-29] MEDS ORDERED: TAMSULOSIN 0.4 MG CAP.ER.24H PO SCH (09:00)
[2020-09-29] MEDS ORDERED: EZETIMIBE 10 MG TAB PO SCH (09:00)
[2020-09-29] MEDS ORDERED: OXYBUTYNIN XL 5 MG TAB.ER.24 PO SCH (09:00)
[2020-09-29 09:10] VITALS: PULSE 80; RESP 16; TEMP 98.4
[2020-09-29] MEDS: LABETALOL 200 MG TAB PO SCH (09:14)
[2020-09-29] MEDS: DEXTROSE 5%-0.45% NACL 1,000 ML IV SCH (09:17)
--- NOTE | 2020-09-29 10:04 | P.DS ---
Providers Date of admission: 09/28/20 23:46 Expected date of discharge: 09/29/20 Attending physician: Natalio Mcrae Primary care physician: [facility] Course: The patient is a 60-year-old female with a history of urolithiasis who was admitted for elective right percutaneous nephrostolithotomy for treatment of a 2.6 cm right renal pelvic calculus. The procedure was performed under general anesthesia on 09/28. Patient's urine remained clear draining from the Boyd catheter and nephrostomy catheter following surgery. Unfortunately during the night nephrostomy drainage tube became kinked and the patient developed right flank pain. This resolved immediately following correction of the kink in the drainage tube. Her urethral catheter was removed prior to discharge. At the time of discharge the patient was comfortable and tolerating a diet. She will be seen back by Dr. Mcrae on 10/02 at which time it is anticipated that her nephrostomy tube will be removed. Patient Condition at Discharge: Good Plan - Discharge Summary Discharge Rx Participant: No New Discharge Prescriptions: No Action Ezetimibe [Zetia] 10 mg PO DAILY #90 tab Omeprazole 40 mg PO DAILY Labetalol [Trandate] 200 mg PO BID Agu[place]-3 Acid Ethyl Esters [Lovaza] 2 gm PO BID Tolterodine ER [Detrol LA] 4 mg PO DAILY #30 cap.er.24h Tamsulosin [Flomax] 0.4 mg PO DAILY #30 cap Discharge Medication List Ezetimibe [Zetia] 10 mg PO DAILY #90 tab 02/22/19 [Rx] Labetalol [Trandate] 200 mg PO BID 07/21/20 [History] Omeprazole 40 mg PO DAILY 07/21/20 [History] Aguilar-3 Acid Ethyl Esters [Lovaza] 2 gm PO BID 08/27/20 [History] Tamsulosin [Flomax] 0.4 mg PO DAILY #30 cap 08/29/20 [Rx] Tolterodine ER [Detrol LA] 4 mg PO DAILY #30 cap.er.24h 08/29/20 [Rx] Follow up Appointment(s)/Referral(s): Natalio Mcrae MD [STAFF PHYSICIAN] - 10/02/20 Discharge Disposition: HOME SELF-CARE
[2020-09-29 11:32] VITALS: BP 176/76
== END 2020-09-29 14:20 | disposition home or self-care (01) ==
LOC: OR 08:23 → 4SSUR 12:02 → OR 23:46 → 4SSUR 23:46 → OR 09-29 00:11
PROVIDERS: ADMIT Urology; ATTEND Urology
DX: N20.0 Calculus of kidney (principal); Q61.9 Cystic kidney disease, unspecified; K21.9 Gastro-esophageal reflux disease without esophagitis; E78.5 Hyperlipidemia, unspecified; I10 Essential (primary) hypertension; Z98.890 Other specified postprocedural states; Z87.442 Personal history of urinary calculi; Z87.01 Personal history of pneumonia (recurrent); Z90.49 Acquired absence of other specified parts of digestive tract; Z98.51 Tubal ligation status; Z91.89 Other specified personal risk factors, not elsewhere classified; Z87.891 Personal history of nicotine dependence; Z79.899 Other long term (current) drug therapy; Z88.2 Allergy status to sulfonamides; Z88.8 Allergy status to other drugs, medicaments and biological substances; Z88.6 Allergy status to analgesic agent; Z83.438 Family history of other disorder of lipoprotein metabolism and other lipidemia; Z82.49 Family history of ischemic heart disease and other diseases of the circulatory system; Z80.6 Family history of leukemia
CPT/HCPCS: 50081; 52005; 50432; 86900; 86901; 86850; 82365; 74018; G0378; C1769 ×3; C2628; C1894; C1729; J2250; J0360; J1100; J2710; J2765; J0690; J2405; J2001; J3010; J0330; J2704; J1170 ×2; Q9967

== ENCOUNTER 2020-10-02 18:11 | Inpatient (IN) | payer BC ==
[2020-10-02] MEDS ORDERED: SODIUM CHLORIDE 0.9% 1,000 ML IV STA (19:22)
[2020-10-02] MEDS ORDERED: HYDROmorphone 0.5 MG/0.5 ML SYRINGE IVP STA ×2 (19:22→20:32)
[2020-10-02] MEDS ORDERED: ONDANSETRON 4 MG/2 ML VIAL IVP STA (19:22)
[2020-10-02 19:24] LABS: Basophils # (A) 0.1 k/uL (0-0.2); Basophils % (A) 1 %; Eosinophils # (A) 0.2 k/uL (0-0.7); Eosinophils % (A) 2 %; HCT 43.4 % (34.0-46.0); HGB 14.4 gm/dL (11.4-16.0); Lymphocytes # (A) 0.9 k/uL (1.0-4.8); Lymphocytes % (A) 9 %; MCH 30.8 pg (25.0-35.0); MCHC 33.3 g/dL (31.0-37.0); MCV 92.4 fL (80.0-100.0); Mean Platelet Volume 7.2; Monocytes # (A) 0.7 k/uL (0-1.0); Monocytes % (A) 7 %; Neutrophils # (A) 8.3 k/uL (1.3-7.7); Neutrophils % (A) 81 %; Platelet Count 182 k/uL (150-450); RBC 4.69 m/uL (3.80-5.40); RDW 13.4 % (11.5-15.5); WBC 10.3 k/uL (3.8-10.6)
[2020-10-02 19:32] LABS: Calcium 9.4 mg/dL (8.4-10.2); Potassium 5.4 mmol/L (3.5-5.1)
--- NOTE | 2020-10-02 19:32 | ED ---
General Adult HPI - General Chief complaint: Abdominal Pain Stated complaint: Kidney stone removed, pain & burning feeling Time Seen by Provider: 10/02/20 18:49 Source: patient, RN notes reviewed Mode of arrival: ambulatory Limitations: no limitations - History of Present Illness Initial comments: 60-year-old female presents to the emergency department for a chief complaint of right flank and abdominal pain. Patient was admitted about 4 days ago to this hospital with a 2.6 cm calculus in the right renal pelvic. She had elective percutaneous nephrostolithotomy performed. Today patient had the nephrostomy tube removed per patient went home and started having severe flank and abdominal pain. Patient states she took Tylenol but it did not help.Patient has no other complaints at this time including shortness of breath, chest pain, nausea or vom iting, headache, or visual changes. - Related Data Home Medications Medication Instructions Recorded Confirmed Labetalol [Trandate] 200 mg PO BID 07/21/20 10/02/20 Omeprazole 40 mg PO DAILY 07/21/20 10/02/20 [place]-3 Acid Ethyl Esters [Lovaza] 2 gm PO BID 08/27/20 10/02/20 Previous Rx's Medication Instructions Recorded Ezetimibe [Zetia] 10 mg PO DAILY #90 tab 02/22/19 Tamsulosin [Flomax] 0.4 mg PO DAILY #30 cap 08/29/20 Tolterodine ER [Detrol LA] 4 mg PO DAILY #30 cap.er.24h 08/29/20 Allergies Allergy/AdvReac Type Severity Reaction Status Date / Time amlodipine [From Norvasc] Allergy HANDS AND Verified 10/02/20 21:14 FEET SWELL Sulfa (Sulfonamide Allergy Abdominal Verified 10/02/20 21:14 Antibiotics) Pain, nausea aspirin AdvReac DX WITH Verified 10/02/20 21:14 STOMACH ULCER hydrochlorothiazide AdvReac Cough Verified 10/02/20 21:14 ibuprofen [From Motrin] AdvReac DX WITH Verified 10/02/20 21:14 STOMACH ULCER Review of Systems ROS Statement: Those systems with pertinent positive or pertinent negative responses have been documented in the HPI. ROS Other: All systems not noted in ROS Statement are negative. Past Medical History Past Medical History: GERD/Reflux, Hyperlipidemia, Hypertension, Pneumonia Additional Past Medical History / Comment(s): kidney stones, History of Any Multi-Drug Resistant Organisms: None Reported Past Surgical History: Cholecystectomy, Tubal Ligation Additional Past Surgical History / Comment(s): lithotripsy, cystoscopy/left ureteroscopy Past Anesthesia/Blood Transfusion Reactions: Postoperative Nausea & Vomiting (PONV) Past Psychological History: No Psychological Hx Reported Smoking Status: Former smoker Past Alcohol Use History: Occasional Past Drug Use History: None Reported - Past Family History Father Family Medical History: Cancer Additional Family Medical History / Comment(s): leukemia General Exam Limitations: no limitations General appearance: alert, in no apparent distress Head exam: Present: atraumatic, normocephalic, normal inspection Eye exam: Present: normal appearance, PERRL, EOMI. Absent: scleral icterus, conjunctival injection, periorbital swelling ENT exam: Present: normal exam, mucous membranes moist Neck exam: Present: normal inspection. Absent: tenderness, meningismus, lymphadenopathy Respiratory exam: Present: normal lung sounds bilaterally. Absent: respiratory distress, wheezes, rales, rhonchi, stridor Cardiovascular Exam: Present: regular rate, normal rhythm, normal heart sounds. Absent: systolic murmur, diastolic murmur, rubs, gallop, clicks GI/Abdominal exam: Present: soft, normal bowel sounds. Absent: distended, tenderness, guarding, rebound, rigid Back exam: Present: CVA tenderness (R), other (Incision site appears to be well healing.). Absent: CVA tenderness (L) Course Vital Signs 10/02/20 18:42 Temperature 99.1 F Pulse Rate 88 Respiratory 18 Rate Blood Pressure 122/81 O2 Sat by Pulse 96 Oximetry Medical Decision Making - Medical Decision Making It is a stable. CBC unremarkable. CMP does show mildly worsening renal funct ion with a creatinine of 1.73. Patient does have 182 red blood cells in her urine. CT abdomen and pelvis with contrast was obtained which shows bilateral hydronephrosis with obstructing calculi at UPJ bilaterally and also calculus in the right mid ureter. Right-sided hydronephrosis is increased. Patient was given pain medication did have improvement pains but is still somewhat uncomfortable. Dr. Huitron spoke with Dr. Sahni regarding this case who does accept admission. - Lab Data Result diagrams: 10/02/20 19:13 10/02/20 19:13 Lab Results 10/02/20 10/02/20 10/02/20 Range/Units 19:13 19:13 19:13 WBC 10.3 (3.8-10.6) k/uL RBC 4.69 (3.80-5.40) m/uL Hgb 14.4 (11.4-16.0) gm/dL Hct 43.4 (34.0-46.0) % MCV 92.4 (80.0-100.0) fL MCH 30.8 (25.0-35.0) pg MCHC 33.3 (31.0-37.0) g/dL RDW 13.4 (11.5-15.5) % Plt Count 182 (150-450) k/uL MPV 7.2 Neutrophils % 81 % Lymphocytes % 9 % Monocytes % 7 % Eosinophils % 2 % Basophils % 1 % Neutrophils # 8.3 H (1.3-7.7) k/uL Lymphocytes # 0.9 L (1.0-4.8) k/uL Monocytes # 0.7 (0-1.0) k/uL Eosinophils # 0.2 (0-0.7) k/uL Basophils # 0.1 (0-0.2) k/uL Sodium 137 (137-145) mmol/L Potassium 5.4 H (3.5-5.1) mmol/L Chloride 107 (98-107) mmol/L Carbon Dioxide 23 (22-30) mmol/L Anion Gap 7 mmol/L BUN 24 H (7-17) mg/dL Creatinine 1.73 H (0.52-1.04) mg/dL Est GFR (CKD-EPI)AfAm 37 (>60 ml/min/1.73 sqM) Est GFR (CKD-EPI)NonAf 32 (>60 ml/min/1.73 sqM) Glucose 137 H (74-99) mg/dL Calcium 9.4 (8.4-10.2) mg/dL Urine Color Yellow Urine Appearance Clear (Clear) Urine pH 8.0 (5.0-8.0) Ur Specific [place] 1.009 (1.001-1.035) Urine Protein 2+ H (Negative) Urine Glucose (UA) Negative (Negative) Urine Ketones Negative (Negative) Urine Blood Moderate H (Negative) Urine Nitrite Negative (Negative) Urine Bilirubin Negative (Negative) Urine Urobilinogen <2.0 (<2.0) mg/dL Ur Leukocyte Esterase Small H (Negative) Urine RBC >182 H (0-5) /hpf Urine WBC 19 H (0-5) /hpf Ur Squamous Epith Cells 3 (0-4) /hpf Urine Bacteria Occasional H (None) /hpf Disposition Clinical Impression: Bilateral hydronephrosis, Hematuria, NICOLÁS (acute kidney injury) Disposition: ADMITTED IP TO THIS HOSP Is patient prescribed a controlled substance at d/c from ED?: No Referrals: Cristino Butterfield DO [Primary Care Provider] - 1-2 days Time of Disposition: 22:22
[2020-10-02 19:47] LABS: Appearance,Urine Clear (Clear); Bacteria,Urine Occasional /hpf; Bilirubin,Urine Negative (Negative); Blood,Urine Moderate (Negative); Color,Urine Yellow; Glucose,Urine (UA) Negative (Negative); Ketones,Urine Negative (Negative); Leukocyte Esterase,Urine Small (Negative); Nitrite,Urine Negative (Negative); Protein,Urine 2+ (Negative); RBC,Urine >182 /hpf (0-5); Specific Gravity,Urine 1.009 (1.001-1.035); Squamous Epithelial Cell,Urine 3 /hpf (0-4); Urobilinogen,Urine <2.0 mg/dL (<2.0); WBC,Urine 19 /hpf (0-5)
[2020-10-02] MEDS ORDERED: SODIUM CHLORIDE 0.9% 500 ML 500 ML IV STA (19:52)
--- NOTE | 2020-10-02 20:47 | CT ---
EXAMINATION TYPE: CT abdomen pelvis wo con DATE OF EXAM: 10/02/2020 COMPARISON: 08/15/2020 HISTORY: Abdominal pain CT DLP: 504.2 mGycm Automated exposure control for dose reduction was used. Lung bases are clear of consolidation. There is minimal subsegmental atelectasis. There is small pericardial effusion. There is small hiatal herni a. Liver and spleen appear normal. The bile ducts are not dilated. There is no evidence of pancreatic ma ss. There are clips from cholecystectomy. There are multiple bilateral renal calculi. These measure up to 7 mm. There is bilateral hydronephros is. There are multiple calculi collected in the right ureteropelvic junction. There is 10 mm calculus at the left ureteropelvic junction. There are calcifications at the cortical surface of the lower po le of the left kidney. These measure up to 1.5 cm. Appendix appears normal. There is fat stranding ar ound both kidneys and more on the right side. There appears to be also 7 mm calculus in the mid right ureter. There are multiple cysts involving the left kidney that measure up to 4 cm. The bladder dist ends smoothly. There is no inguinal hernia. Uterus is anteverted. There is no free fluid in the pelvi s. Lumbar vertebra have normal alignment. There is no compression fracture. Disc spaces are fairly norm al. Bony pelvis is intact. There is no evidence of a bowel obstruction. There is no ascites. There is no free air. IMPRESSION: Bilateral hydronephrosis with obstructing calculi at the ureteral pelvic junction bilaterally and als o calculus in the mid right ureter. Multiple left renal cysts are smaller than old CT scan. There is fragmentation of the large right renal calculus compared to old exam. Right-sided hydronephrosis incr eased compared to old exam. Obstructing calculus at the left ureteropelvic junction unchanged compare d to old exam.
[2020-10-02] MEDS ORDERED: HYDROmorphone 1 MG/ML 1 ML SYRINGE IVP STA (20:54)
[2020-10-02] MEDS ORDERED: ONDANSETRON 4 MG/2 ML VIAL IVP PRN (22:18)
[2020-10-02] MEDS ORDERED: NALOXONE 0.4 MG/ML 1 ML VIAL IV PRN (22:18)
[2020-10-02] MEDS: LABETALOL 200 MG TAB PO SCH (22:41)
[2020-10-02] MEDS: SODIUM CHLORIDE 0.9% 1,000 ML IV SCH (22:42)
[2020-10-03] MEDS ORDERED: LABETALOL 5 MG/ML VIAL MDV IVP STA (00:21)
[2020-10-03] MEDS: TAMSULOSIN 0.4 MG CAP.ER.24H PO SCH (07:32)
[2020-10-03] MEDS: LABETALOL 200 MG TAB PO SCH ×2 (07:33→22:50)
[2020-10-03] MEDS: PANTOPRAZOLE 40 MG TABLET PO SCH (07:33)
[2020-10-03] MEDS: EZETIMIBE 10 MG TAB PO SCH (07:33)
--- NOTE | 2020-10-03 08:29 | P.GSCN ---
History of Present Illness Consult date: 10/03/20 Reason for Consult: Right flank pain Requesting physician: Cristino Butterfield History of present illness: The patient is a 60-year-old white female with a history of urolithiasis. She has previously undergone ESWL and PCNL. She has recently experienced pain beneath her rib cage bilaterally. A computed tomography scan showed a multicystic left kidney with a 13 mm left proximal ureteral calculus. Additionally, a 2.6 cm right renal pelvic calculus causing mild hydronephrosis was seen. She underwent left ureteroscopy with laser lithotripsy to treat the left proximal ureteral calculus on 08/29/2020. The calculus was impacted and removed incompletely. Given the apparent lack of function in that kidney and the fact that she will develop a left ureteral stricture, a secondary procedure was not recommended. The calculus is composed of calcium oxalate. She underwent a right percutaneous nephrolithotomy (PCNL) on 09/28/2020. She underwent removal of her right nephrostomy tube yesterday, and returned to the ER yesterday evening reporting pain. She was found to have mild right hydronephrosis due to an apparent 7 mm right mid-ureteral calculus. A 5 mm calculus is also seen in the region of the right UPJ. Review of Systems - Constitutional Denies chills, Denies fever - Genitourinary Genitourinary: Reports flank pain, Reports kidney stones Past Medical History Past Medical History: GERD/Reflux, Hyperlipidemia, Hypertension, Pneumonia Additional Past Medical History / Comment(s): kidney stones, History of Any Multi-Drug Resistant Organisms: None Reported Past Surgical History: Cholecystectomy, Tubal Ligation Additional Past Surgical History / Comment(s): lithotripsy, cystoscopy/left ureteroscopy Past Anesthesia/Blood Transfusion Reactions: Postoperative Nausea & Vomiting (PONV) Past Psychological History: No Psychological Hx Reported Smoking Status: Former smoker Past Alcohol Use History: Occasional Additional Past Alcohol Use History / Comment(s): smoker for 20-25 years, 1 ppd, quit 2010 Past Drug Use History: None Reported - Past Family History Father Family Medical History: Cancer Additional Family Medical History / Comment(s): leukemia Medications and Allergies Home Medications Medication Instructions Recorded Confirmed Type Ezetimibe [Zetia] 10 mg PO DAILY #90 tab 02/22/19 10/02/20 Rx Labetalol [Trandate] 200 mg PO BID 07/21/20 10/02/20 History Omeprazole 40 mg PO DAILY 07/21/20 10/02/20 History [place]-3 Acid Ethyl Esters [Lovaza] 2 gm PO BID 08/27/20 10/02/20 History Tamsulosin [Flomax] 0.4 mg PO DAILY #30 cap 08/29/20 10/02/20 Rx Tolterodine ER [Detrol LA] 4 mg PO DAILY #30 cap.er.24h 08/29/20 10/02/20 Rx Allergies Allergy/AdvReac Type Severity Reaction Status Date / Time amlodipine [From Norvasc] Allergy HANDS AND Verified 10/02/20 21:14 FEET SWELL Sulfa (Sulfonamide Allergy Abdominal Verified 10/02/20 21:14 Antibiotics) Pain, nausea aspirin AdvReac DX WITH Verified 10/02/20 21:14 STOMACH ULCER hydrochlorothiazide AdvReac Cough Verified 10/02/20 21:14 ibuprofen [From Motrin] AdvReac DX WITH Verified 10/02/20 21:14 STOMACH ULCER Surgical - Exam Vital Signs Temp Pulse Resp BP Pulse Ox 99.1 F 88 18 122/81 96 10/02/20 18:42 10/02/20 18:42 10/02/20 18:42 10/02/20 18:42 10/02/20 18:42 - General well developed, well nourished, no distress - Respiratory normal respiratory effort - Abdomen Abdomen: soft, non tender, no guarding, no rigid, no rebound - Psychiatric oriented to time, oriented to person, oriented to place, speech is normal, memory intact Results - Labs 10/02/20 19:13 10/02/20 19:13 Abnormal Lab Results - Last 24 Hours (Table) 10/02/20 10/02/20 10/02/20 Range/Units 19:13 19:13 19:13 Neutrophils # 8.3 H (1.3-7.7) k/uL Lymphocytes # 0.9 L (1.0-4.8) k/uL Potassium 5.4 H (3.5-5.1) mmol/L BUN 24 H (7-17) mg/dL Creatinine 1.73 H (0.52-1.04) mg/dL Glucose 137 H (74-99) mg/dL Urine Protein 2+ H (Negative) Urine Blood Moderate H (Negative) Ur Leukocyte Esterase Small H (Negative) Urine RBC >182 H (0-5) /hpf Urine WBC 19 H (0-5) /hpf Urine Bacteria Occasional H (None) /hpf Diabetes panel 10/02/20 Range/Units 19:13 Sodium 137 (137-145) mmol/L Potassium 5.4 H (3.5-5.1) mmol/L Chloride 107 (98-107) mmol/L Carbon Dioxide 23 (22-30) mmol/L BUN 24 H (7-17) mg/dL Creatinine 1.73 H (0.52-1.04) mg/dL Glucose 137 H (74-99) mg/dL Calcium 9.4 (8.4-10.2) mg/dL Calcium panel 10/02/20 Range/Units 19:13 Calcium 9.4 (8.4-10.2) mg/dL Pituitary panel 10/02/20 Range/Units 19:13 Sodium 137 (137-145) mmol/L Potassium 5.4 H (3.5-5.1) mmol/L Chloride 107 (98-107) mmol/L Carbon Dioxide 23 (22-30) mmol/L BUN 24 H (7-17) mg/dL Creatinine 1.73 H (0.52-1.04) mg/dL Glucose 137 H (74-99) mg/dL Calcium 9.4 (8.4-10.2) mg/dL Adrenal panel 10/02/20 Range/Units 19:13 Sodium 137 (137-145) mmol/L Potassium 5.4 H (3.5-5.1) mmol/L Chloride 107 (98-107) mmol/L Carbon Dioxide 23 (22-30) mmol/L BUN 24 H (7-17) mg/dL Creatinine 1.73 H (0.52-1.04) mg/dL Glucose 137 H (74-99) mg/dL Calcium 9.4 (8.4-10.2) mg/dL - Imaging CT scan - abdomen: report reviewed, image reviewed Assessment and Plan (1) Calculus of ureter Current Visit: Yes Status: Acute Code(s): N20.1 - CALCULUS OF URETER SNOMED Code(s): 59138610 Plan: Arrangements will be made for her to undergo cystoscopy, right ureteroscopy with laser lithotripsy, right ureteral stent placement later today by myself or Dr. Mcrae. She is aware of potential risks, which include anesthesia, bleeding, infection, ureteral injury, and incomplete removal of the calculi.
[2020-10-03] MEDS ORDERED: NON FORMULARY DRUG (Omega-3 Acid Ethyl Esters [Lovaza] 1 GM Capsule) PO SCH (09:00)
[2020-10-03] MEDS: OXYBUTYNIN XL 5 MG TAB.ER.24 PO SCH (09:16)
[2020-10-03] MEDS: HYDROmorphone 0.5 MG/0.5 ML SYRINGE IVP PRN ×2 (09:17→13:52)
[2020-10-03] MEDS ORDERED: IV FLUID CONTINUATION 1,000 ML IV ONE (17:07)
[2020-10-03] MEDS ORDERED: DEXAMETHASONE SOD PHOSPHATE 4 MG/ML 1 ML VIAL IV ONE (18:23)
[2020-10-03] MEDS ORDERED: ONDANSETRON 4 MG/2 ML VIAL IVP ONE (18:23)
[2020-10-03] MEDS ORDERED: SCOPOLAMINE 1.5MG/72HR PATCH TRANSDERM ONE (18:23)
[2020-10-03] MEDS ORDERED: PROPOFOL 10 MG/ML 20 ML VIAL IV ONE (18:28)
[2020-10-03] MEDS ORDERED: fentaNYL (PF) 50 MCG/ML 2 ML AMP ONE (18:28)
[2020-10-03] MEDS ORDERED: LIDOCAINE 1% INJ 10MG/ML (20 ML MDV) ONE (18:28)
[2020-10-03] MEDS ORDERED: ROCURONIUM 10 MG/ML (10 ML VIAL) IV ONE (18:28)
[2020-10-03] MEDS ORDERED: NEOSTIGMINE 1 MG/ML 10 ML VIAL ONE (18:28)
[2020-10-03] MEDS ORDERED: MIDAZOLAM 2 MG/2 ML VIAL ONE (18:28)
[2020-10-03] MEDS ORDERED: GLYCOPYRROLATE 0.2 MG/ML 2 ML VIAL ONE (18:28)
[2020-10-03] MEDS ORDERED: SUCCINYLCHOLINE CHLORIDE 100 MG/5 ML SYR IV ONE (18:28)
[2020-10-03] MEDS ORDERED: IOHEXOL 350 MG/ML 50 ML in EMPTY BAG 1 BAG IRRIGATION ONE (18:48)
--- NOTE | 2020-10-03 19:09 | P.OP ---
Date of Procedure: 10/03/20 Preoperative Diagnosis: Right ureteral obstruction status post percutaneous nephrostolithotomy Postoperative Diagnosis: Same, secondary to stones but also edema Procedure(s) Performed: Cystoscopy, right retrograde pyelogram, right ureteroscopy stone removal, placement of 624 stent Anesthesia: ILENE Surgeon: Natalio Mcrae Estimated Blood Loss (ml): 0 Pathology: none sent Disposition: PACU Indications for Procedure: Patient is a 60-year-old female who had a 3 cm right renal stone treated with percutaneous nephrostolithotomy last Thursday. This was done by myself. Best I can tell the stone was removed. The nephrostomy tube was removed yesterday but she presented the emergency room last night with severe ureteral colic. Computed tomography scan was obtained suggesting a ureteral obstruction due to a 7 mm mid ureteral stone. She comes for cystoscopy retrograde pyelogram and procedures indicated Description of Procedure: Patient brought to the operative suite she is given general anesthesia. She's placed lithotomy position with sterile prep and drape. Cystoscopy Foroblique lens and 21-Yoruba sheath identifies a normal bladder mucosa. There stony debris on the floor the bladder. Within a cone-tipped catheter a retrograde pyelogram was performed. The ureters of normal course and caliber like vessels were there is an abrupt cut off and then hydroureter proximal to that. Ureter then follows more proximally and in the mid ureter above the iliac vessels residually hook of the ureter with more proximal hydronephrosis. The first obstruction appears to be due to stone the second obstruction is indeterminate cause. CVS semirigid ureteroscope up the ureter. There is obvious stone at the area of the first obstruction that I'm able to manipulate out and flush out of the ureter. I go to the more proximal portion above the iliac vessels but I cannot manipulate the scope beyond this and I did not try to force it. Pass an 035 wire through the scope up into the renal pelvis. I followed wire with the semirigid scope an area of the obstruction and I do not see any obvious stone. There is edema and no definite stone. I then pass the scope follow-up in the renal pelvis and see no remaining stone. Up I do a pullout ureteroscopy with a wire and do not see any other obvious stone. Removed the ureteroscope up. Due to the more proximal obstruction being due to edema I'll place a stent. Over the wire 6 x 24 double-J catheters passed up into the renal pelvis and coils in the renal pelvis and the bladder the bladder strain the fragments are ranging in the bladder the patient's awake and returned recovery in good condition Impression successful removal fragments post operative percutaneous nephrostolithotomy. Place for the edema. This will stay in a couple weeks.
[2020-10-03] MEDS: SODIUM CHLORIDE 0.9% 1,000 ML IV SCH ×2 (20:40→20:52)
[2020-10-04] MEDS ORDERED: LABETALOL 200 MG TAB PO ONE (01:00)
[2020-10-04] MEDS: SODIUM CHLORIDE 0.9% 1,000 ML IV SCH (04:36)
[2020-10-04 05:48] VITALS: BP 171/77; PULSE 66; RESP 16; TEMP 98.6
--- NOTE | 2020-10-04 07:13 | FL ---
Fluoroscopy HISTORY: Cystoscopy and stent insertion 82 seconds fluoroscopy time supplied to the referring clinician. 1 intraoperative C-arm images docum ent the procedure. See dictated report from urology.
[2020-10-04] MEDS: TAMSULOSIN 0.4 MG CAP.ER.24H PO SCH (08:18)
[2020-10-04] MEDS: LABETALOL 200 MG TAB PO SCH (08:19)
[2020-10-04] MEDS: PANTOPRAZOLE 40 MG TABLET PO SCH (08:19)
[2020-10-04] MEDS: EZETIMIBE 10 MG TAB PO SCH (08:19)
[2020-10-04] MEDS: OXYBUTYNIN XL 5 MG TAB.ER.24 PO SCH (08:19)
--- NOTE | 2020-10-04 10:58 | P.DS ---
Providers Date of admission: 10/02/20 22:17 Expected date of discharge: 10/04/20 Attending physician: Isac Sahni Primary care physician: Cristino Butterfield - Discharge Diagnosis(es) (1) Calculus of ureter Current Visit: Yes Status: Acute Hospital Course: The patient recently underwent a right percutaneous nephrolithotomy for a large right renal pelvic calculus. Her nephrostomy tube was removed, and she subsequently developed pain. She presented to the emergency room. The computed tomography scan showed evidence of right hydronephrosis, and there appeared to be calculi within the ureter. She underwent cystoscopy, right retrograde pyelogram, and right ureteroscopy. There were stone fragments seen within the bladder, but none within the ureter. Edema of the ureter was noted, and a ureteral stent was placed. She felt considerably better the following day and was thus discharged home. Procedures: Cystoscopy, right retrograde pyelogram, right ureteroscopy, right ureteral stent placement on 10/03/2020. Patient Condition at Discharge: Good Plan - Discharge Summary New Discharge Prescriptions: No Action Ezetimibe [Zetia] 10 mg PO DAILY #90 tab Omeprazole 40 mg PO DAILY Labetalol [Trandate] 200 mg PO BID Payette-3 Acid Ethyl Esters [Lovaza] 2 gm PO BID Tolterodine ER [Detrol LA] 4 mg PO DAILY #30 cap.er.24h Tamsulosin [Flomax] 0.4 mg PO DAILY #30 cap Discharge Medication List Ezetimibe [Zetia] 10 mg PO DAILY #90 tab 02/22/19 [Rx] Labetalol [Trandate] 200 mg PO BID 07/21/20 [History] Omeprazole 40 mg PO DAILY 07/21/20 [History] Payette-3 Acid Ethyl Esters [Lovaza] 2 gm PO BID 08/27/20 [History] Tamsulosin [Flomax] 0.4 mg PO DAILY #30 cap 08/29/20 [Rx] Tolterodine ER [Detrol LA] 4 mg PO DAILY #30 cap.er.24h 08/29/20 [Rx] Follow up Appointment(s)/Referral(s): Cristino Butterfield DO [Primary Care Provider] - 1-2 days Isac Sahni MD [STAFF PHYSICIAN] - 2 Weeks Activity/Diet/Wound Care/Special Instructions: Diet as tolerated. Activity as tolerated. Okay to shower. Follow up with Dr. Sahni in 2 weeks for office cystoscopy with stent removal. Discharge Disposition: HOME SELF-CARE
== END 2020-10-04 13:57 | disposition home or self-care (01) | DRG 661 ==
LOC: EC 18:11 → 6NMEDSUR 22:17 → 5NMEDONC 10-03 05:31
PROVIDERS: ADMIT Urology; ATTEND Urology
PROC: 0T768DZ Dilation of Right Ureter with Intraluminal Device, Via Natural or Artificial Opening Endoscopic (ICD-10-PCS; principal; 2020-10-03 10:15)
PROC: BT1D1ZZ Fluoroscopy of Right Kidney, Ureter and Bladder using Low Osmolar Contrast (ICD-10-PCS; principal; 2020-10-03 10:15)
PROC: 0TC68ZZ Extirpation of Matter from Right Ureter, Via Natural or Artificial Opening Endoscopic (ICD-10-PCS; principal; 2020-10-03 10:15)
DX: N13.2 Hydronephrosis with renal and ureteral calculous obstruction (principal); E78.5 Hyperlipidemia, unspecified; I10 Essential (primary) hypertension; N17.9 Acute kidney failure, unspecified; Z90.49 Acquired absence of other specified parts of digestive tract; Z80.6 Family history of leukemia; Z87.442 Personal history of urinary calculi; Z87.891 Personal history of nicotine dependence; Z87.01 Personal history of pneumonia (recurrent); Z98.51 Tubal ligation status; K21.9 Gastro-esophageal reflux disease without esophagitis; Z88.6 Allergy status to analgesic agent; Z88.2 Allergy status to sulfonamides; Z88.8 Allergy status to other drugs, medicaments and biological substances; Z79.899 Other long term (current) drug therapy
CPT/HCPCS: 36415; 74176; 74420; 80048; 81001; 84132; 85025; 96361; 96374; 96375; 96376; 99285

== ENCOUNTER → 2020-10-31 | Outpatient (CLI) | payer BC ==
--- NOTE | 2020-10-31 15:53 | XR ---
KUB HISTORY: N 20.1, bilateral kidney stones Frontal KUB on [address] scan 10/02/2020, KUB 09/28/2020 Lung bases are clear. Retained fecal debris is present throughout the distribution of the colon. Over lying bowel gas may obscure detail. No evident pneumoperitoneum. Surgical clip present in the right u pper quadrant. Probable phleboliths present in the left hemipelvis. Vascular calcification noted at t he L5 transverse process level. Crescentic calcification is superimposed over the lower pole the left kidney as on prior exam. IMPRESSION: Left-sided nephrolithiasis persists. Additional findings above.
== END | disposition home or self-care (01) ==
LOC: RAD 15:23
PROVIDERS: ATTEND Urology
DX: N20.0 Calculus of kidney (principal); R19.5 Other fecal abnormalities; Z96.89 Presence of other specified functional implants
CPT/HCPCS: 74018

== ENCOUNTER → 2020-11-21 | Outpatient (CLI) | payer BC ==
[2020-11-21 14:30] LABS: Basophils % (A) 1 %; Eosinophils # (A) 0.1 k/uL (0-0.7); Eosinophils % (A) 2 %; HCT 50.2 % (34.0-46.0); HGB 16.4 gm/dL (11.4-16.0); Lymphocytes # (A) 1.5 k/uL (1.0-4.8); Lymphocytes % (A) 26 %; MCH 29.7 pg (25.0-35.0); MCHC 32.7 g/dL (31.0-37.0); Mean Platelet Volume 6.8; Monocytes # (A) 0.4 k/uL (0-1.0); Monocytes % (A) 7 %; Neutrophils # (A) 3.6 k/uL (1.3-7.7); Neutrophils % (A) 63 %; Platelet Count 237 k/uL (150-450); RBC 5.52 m/uL (3.80-5.40); RDW 13.8 % (11.5-15.5); WBC 5.7 k/uL (3.8-10.6)
[2020-11-21 14:59] LABS: Appearance,Urine Cloudy (Clear); Bacteria,Urine Rare /hpf; Bilirubin,Urine Negative (Negative); Blood,Urine Trace (Negative); Color,Urine Yellow; Glucose,Urine (UA) Negative (Negative); Ketones,Urine Negative (Negative); Leukocyte Esterase,Urine Large (Negative); Mucus,Urine Rare /hpf; Nitrite,Urine Negative (Negative); Protein,Urine 2+ (Negative); RBC,Urine 3 /hpf (0-5); Specific Gravity,Urine 1.011 (1.001-1.035); Squamous Epithelial Cell,Urine 4 /hpf (0-4); Urobilinogen,Urine <2.0 mg/dL (<2.0); WBC,Urine 29 /hpf (0-5)
[2020-11-22 04:19] LABS: African American GFR (CKD) 57.3 (60.0-200.0); Anion Gap 17.2 mmol/L (4.00-12.00); BUN/Creat Ratio 14.17 Ratio (12.00-20.00); Calcium 10.2 mg/dL (8.7-10.3); Carbon Dioxide 22.8 mmol/L (21.6-31.8); Non-African American GFR(CKD) 49.4 (60.0-200.0); Potassium 4.1 mmol/L (3.5-5.5)
== END | disposition home or self-care (01) ==
LOC: LABWHC1 13:53
PROVIDERS: ATTEND Urology
DX: Z01.818 Encounter for other preprocedural examination (principal); N20.1 Calculus of ureter; R31.21 Asymptomatic microscopic hematuria
CPT/HCPCS: 36415; 80048; 81001; 85025; 87086

== ENCOUNTER → 2020-11-28 | Day surgery (SDC) | payer BC ==
[2020-11-22 08:25] VITALS: BMI 28.1
--- NOTE | 2020-11-27 19:08 | P.GSHP ---
History of Present Illness H&P Date: 11/27/20 60 yo history of stones Had a left uretereoscopy by Dr Sahni last year she had a right PCNL by me and then a right ureteroscopy to a small fragment post pcnl. SHe now has a new ureteral stone left. The kidney has chronic hydro but she still has pain SHe comes for a left ureteroscopy and laser lithotripsy - Constitutional Constitutional: Denies chills, Denies fever - EENT Eyes: denies blurred vision, denies pain Ears, nose, mouth and throat: Denies headache, Denies sore throat - Cardiovascular Cardiovascular: Denies chest pain, Denies shortness of breath - Respiratory Respiratory: Denies cough, Denies 7 - Gastrointestinal Gastrointestinal: Denies abdominal pain, Denies diarrhea, Denies nausea, Denies vomiting - Genitourinary (Female) Genitourinary: Denies dysuria, Denies hematuria - Genitourinary (Male) Genitourinary: Denies dysuria, Denies hematuria - Musculoskeletal Musculoskeletal: Denies myalgias - Integumentary Integumentary: Denies pruritus, Denies rash - Neurological Neurological: Denies numbness, Denies weakness - Psychiatric Psychiatric: Denies anxiety, Denies depression - Endocrine Endocrine: Denies fatigue, Denies weight change Past Medical History Past Medical History: GERD/Reflux, Hyperlipidemia, Hypertension Additional Past Medical History / Comment(s): kidney stones, hx migraines, hx ulcer, History of Any Multi-Drug Resistant Organisms: None Reported Past Surgical History: Cholecystectomy, Tubal Ligation Additional Past Surgical History / Comment(s): lithotripsy, cystoscopy/left ureteroscopy Past Anesthesia/Blood Transfusion Reactions: Postoperative Nausea & Vomiting (PONV) Smoking Status: Former smoker - Past Family History Father Family Medical History: Cancer Additional Family Medical History / Comment(s): leukemia Medications and Allergies Home Medications Medication Instructions Recorded Confirmed Type Ezetimibe [Zetia] 10 mg PO DAILY #90 tab 02/22/19 11/22/20 Rx Labetalol [Trandate] 200 mg PO BID 07/21/20 11/22/20 History Prescott-3 Acid Ethyl Esters [Lovaza] 2 gm PO BID 08/27/20 11/22/20 History Acetaminophen [Tylenol] 500 mg PO Q4-6H PRN 11/22/20 11/22/20 History Allergies Allergy/AdvReac Type Severity Reaction Status Date / Time amlodipine [From Norvasc] Allergy HANDS AND Verified 11/22/20 08:16 FEET SWELL bee venom protein (honey bee) Allergy Swelling Verified 11/22/20 08:16 Sulfa (Sulfonamide Allergy Abdominal Verified 11/22/20 08:16 Antibiotics) Pain, nausea aspirin AdvReac DX WITH Verified 11/22/20 08:16 STOMACH ULCER hydrochlorothiazide AdvReac Cough Verified 11/22/20 08:16 ibuprofen [From Motrin] AdvReac DX WITH Verified 11/22/20 08:16 STOMACH ULCER Surgical - Exam - General well developed, well nourished - ENT no hearing loss - Neck trachea midline - Respiratory normal expansion, normal respiratory effort - Cardiovascular Rhythm: regular - Abdomen Abdomen: soft, non tender - Integumentary no rash, no growths - Neurologic normal sensation - Musculoskeletal normal gait, normal posture - Psychiatric oriented to time, oriented to person, oriented to place, speech is normal, memory intact Results - Imaging CT scan - abdomen: report reviewed, image reviewed CT scan - pelvis: report reviewed, image reviewed Assessment and Plan Assessment: Impression: Left ureteral stone Plan: Left ureteroscopy with laser lithotripsy and possible stent
[~2020-11-28] MED LIST changes: +AMPICILLIN 1,000 MG in SODIUM CHLORIDE 0.9% 50 ML IVPB PRN; -DEXAMETHASONE SOD PHOSPHATE 10 MG/ML 1 ML VIAL IV ONE; +DEXAMETHASONE SOD PHOSPHATE 4 MG/ML 1 ML VIAL IV ONE; +GENTAMICIN IVPB PRN; +HYDROmorphone 0.5 MG/0.5 ML SYRINGE IVP PRN; +LACTATED RINGERS 1,000 ML IV ONE; +LACTATED RINGERS 1,000 ML IV SCH; +LIDOCAINE 1% (10MG/ML) FOR IV START INTRADERMA PRN; +LIDOCAINE 1% INJ 10MG/ML (20 ML MDV) ONE; +MIDAZOLAM 2 MG/2 ML VIAL ONE; +ONDANSETRON 4 MG/2 ML VIAL ONE; +PROPOFOL 10 MG/ML 20 ML VIAL IV ONE; +SCOPOLAMINE 1.5MG/72HR PATCH TRANSDERM ONE; +SODIUM CHLORIDE 0.9% IVPB PRN; +ePHEDrine SULFATE/0.9% NACL/PF 50 MG/5 ML SYRINGE IV ONE; +fentaNYL (PF) 50 MCG/ML 2 ML AMP ONE
--- NOTE | 2020-11-28 06:45 | XR ---
EXAMINATION TYPE: XR KUB DATE OF EXAM: 11/28/2020 6:38 AM CLINICAL HISTORY: Left-sided kidney stones. TECHNIQUE: Single supine KUB image of the abdomen is obtained. COMPARISON: Abdominal x-ray October 31, 2020. CT abdomen and pelvis October 02, 2020 FINDINGS: Persistent 6 mm upper pole right renal calculus. Smaller punctate right renal calculi on th e CT less well seen on plain films. Faint visualization of small lower pole left renal calculi. There is a 10 mm calculus in the proximal left ureter at L4-L5 disc space level redemonstrated. Scattered bilateral small pelvic phleboliths. Overall nonobstructive bowel gas pattern. [id number]-py-xphibkfm narrowing of both hip joints. Lung bases a re not included. IMPRESSION: As above. Stable 10 mm proximal left ureter calculus noted.
--- NOTE | 2020-11-28 09:42 | P.OP ---
Date of Procedure: 11/28/20 Preoperative Diagnosis: Left ureteral calculus Postoperative Diagnosis: Same Procedure(s) Performed: Cystoscopy, left ureteroscopy laser lithotripsy, placement of 624 double-J catheter Anesthesia: ILENE Surgeon: Natalio Mcrae Estimated Blood Loss (ml): 0 Pathology: other (Stone) Condition: stable Disposition: PACU Indications for Procedure: The patient is 60. She has a history of kidney stones. She had a previous left ureteroscopy with Dr. Sahni. She has a chronically dilated left kidney. She had a percutaneous nephrostolithotomy and ureteroscopy on the right. She has a new stone in the mid left ureter. She comes for ureteroscopy laser lithotripsy Description of Procedure: The patient is brought to the operating suite. She is given general endotracheal anesthesia. She's placed lithotomy position with sterile prep and drape. Cystoscopy Foroblique lens and 21-Tristanian sheath identifies normal urethra. Ureteral orifices normal. The bladder mucosa is unremarkable. The 7- Tristanian mini ureteroscope was passed up into the left mid ureter. The stone is seen emanating from the mid ureter. The stone appears to be somewhat impacted. With a 275 laser probe the left ureteral stone begins to be broken up. The stone is so impacted almost appears as if it is gone some mucosal. I elect to place a wire through the scope up into the renal pelvis to maintain access. This is done a. I then replaced the scope and pass it up the left ureter alongside the ureteral with the 275 laser probe I break the stone tediously into small pieces and flushed out of the ureter. The stone has indeed gone sub mucosal. I'm able to remove the stone up. I then at the end of the procedure flush any stone out of the ureter. I removed the ureteroscope and backloaded the wire onto the cystoscope. Over the wires and passed a 6 x 24 double-J catheter that coils in the left renal pelvis and the bladder. The bladder is drained and the stone fragments were collected the patient is awakened and returned recovery room good condition. Blood loss is negligible.
[2020-11-28 09:43] VITALS: RESP 16; TEMP 97.6
--- NOTE | 2020-11-28 09:58 | FL ---
EXAMINATION TYPE: FL guidance operating room DATE OF EXAM: 11/28/2020 CLINICAL HISTORY: Left ureter stone. TECHNIQUE: Fluoroscopy. COMPARISON: Abdominal x-ray earlier today FINDINGS: Fluoroscopic guidance was provided during left ureter stone treatment procedure performed by Dr. Mcrae. A total of 27 seconds of fluoroscopic time was utilized during the procedure and 5 spo t images was acquired. Images acquired show access at UVJ with subsequent placement of guidewire and then double-J ureter st ent. IMPRESSION: As Above.
[2020-11-28 10:57] VITALS: BP 169/75; PULSE 77
== END | disposition home or self-care (01) ==
LOC: OR 06:29
PROVIDERS: ATTEND Urology
DX: N20.1 Calculus of ureter (principal); N28.89 Other specified disorders of kidney and ureter; Z87.442 Personal history of urinary calculi; I10 Essential (primary) hypertension; E78.5 Hyperlipidemia, unspecified; K21.9 Gastro-esophageal reflux disease without esophagitis; Z79.899 Other long term (current) drug therapy; Z88.2 Allergy status to sulfonamides; Z88.6 Allergy status to analgesic agent; Z91.030 Bee allergy status; Z88.8 Allergy status to other drugs, medicaments and biological substances; Z87.891 Personal history of nicotine dependence; G43.909 Migraine, unspecified, not intractable, without status migrainosus; Z98.51 Tubal ligation status; Z90.49 Acquired absence of other specified parts of digestive tract; Z80.6 Family history of leukemia
CPT/HCPCS: 82365; 74018; 52356; C2625; C1769; J2250; J1100; J2405; J2001; J3010; J1580; J0290; J2704

== ENCOUNTER → 2021-02-06 | Outpatient (CLI) | payer BC | END | disposition home or self-care (01) | LOC: LABWHC1 09:35 | PROVIDERS: ATTEND Urology | DX: N20.0 Calculus of kidney (principal) | CPT/HCPCS: 36415 ==

== ENCOUNTER 2021-02-15 01:54 | Emergency (ER) | payer BC ==
[2021-02-15 08:06] LABS: Calcium 8.7 mg/dL (8.4-10.2); Potassium 3.9 mmol/L (3.5-5.1); Total Bilirubin 0.7 mg/dL (0.2-1.3); Total Protein 6.4 g/dL (6.3-8.2)
[2021-02-15 08:17] LABS: Amorphous Sediment,Urine Rare /hpf; Appearance,Urine Cloudy (Clear); Bacteria,Urine Rare /hpf; Bilirubin,Urine Negative (Negative); Blood,Urine Moderate (Negative); Color,Urine Yellow; Glucose,Urine (UA) Negative (Negative); Hyaline Casts,Urine 1 /lpf (0-2); Ketones,Urine Trace (Negative); Leukocyte Esterase,Urine Moderate (Negative); Mucus,Urine Occasional /hpf; Nitrite,Urine Negative (Negative); Protein,Urine 3+ (Negative); RBC,Urine 6 /hpf (0-5); Specific Gravity,Urine 1.021 (1.001-1.035); Squamous Epithelial Cell,Urine 16 /hpf (0-4); Urobilinogen,Urine <2.0 mg/dL (<2.0); WBC,Urine 42 /hpf (0-5)
[2021-02-15 08:26] LABS: Basophils % (A) 1 %; Eosinophils % (A) 0 %; HCT 46.9 % (34.0-46.0); HGB 15.3 gm/dL (11.4-16.0); Lymphocytes # (A) 0.6 k/uL (1.0-4.8); Lymphocytes % (A) 17 %; MCH 28.5 pg (25.0-35.0); MCHC 32.6 g/dL (31.0-37.0); MCV 87.5 fL (80.0-100.0); Mean Platelet Volume 7.6; Monocytes # (A) 0.4 k/uL (0-1.0); Monocytes % (A) 12 %; Neutrophils # (A) 2.3 k/uL (1.3-7.7); Neutrophils % (A) 69 %; Platelet Count 126 k/uL (150-450); RBC 5.35 m/uL (3.80-5.40); RDW 13.7 % (11.5-15.5); WBC 3.3 k/uL (3.8-10.6)
--- NOTE | 2021-02-15 09:42 | XR ---
EXAM: XR Chest, 1 View CLINICAL HISTORY: FEVER TECHNIQUE: Frontal view of the chest. COMPARISON: None FINDINGS: Lungs: No consolidation or mass. Pleural space: No acute findings Heart: No cardiomegaly. Bones/joints: No acute findings. IMPRESSION: No acute cardiopulmonary process.
--- NOTE | 2021-02-15 09:45 | XR ---
EXAM: XR Abdomen, 2 Views CLINICAL HISTORY: ABDOMINAL PAIN TECHNIQUE: Frontal view of the abdomen/pelvis with upright view of the abdomen. COMPARISON: 10/31/2020 FINDINGS: Intraperitoneal space: No free air. Gastrointestinal tract: Nonspecific bowel gas pattern. No dilation. Bones/joints: No acute fracture. No dislocation. IMPRESSION: Nonspecific bowel gas pattern.
[2021-02-15] MEDS ORDERED: SODIUM CHLORIDE 0.9% 1,000 ML BAG ONE (23:59)
[2021-02-15] MEDS ORDERED: HYDROmorphone 0.5 MG/0.5 ML SYRINGE ONE (23:59)
[2021-02-15] MEDS ORDERED: ACETAMINOPHEN TAB 500 MG TAB ONE (23:59)
[2021-02-15] MEDS ORDERED: KETOROLAC 15 MG/ML 1 ML VIAL ONE (23:59)
== END 2021-02-15 06:35 | disposition home or self-care (01) ==
LOC: EC 01:54
DX: U07.1 COVID-19 (principal); N39.0 Urinary tract infection, site not specified; Z88.2 Allergy status to sulfonamides; Z88.8 Allergy status to other drugs, medicaments and biological substances; Z87.891 Personal history of nicotine dependence
CPT/HCPCS: 36415; 80053; 83605; 83690; 85025; 81001; 87040; 87086; 87635; 71045; 74018; 99284; 96365; 96375; 96361; J1885; J1170; Q0239

== ENCOUNTER → 2021-03-28 | Outpatient (CLI) | payer BC ==
--- NOTE | 2021-03-28 15:57 | US ---
EXAMINATION TYPE: US kidneys/renal and bladder DATE OF EXAM: 03/28/2021 COMPARISON: CT abdomen and pelvis October 02, 2020 CLINICAL HISTORY: N13.30 Hydronephrosis. hx renal stones with surgical removal EXAM MEASUREMENTS: Right Kidney: 11.5 x 4.6 x 5.1 cm Left Kidney: 21.2 x 11.2 x 10.6 cm Right Kidney: Mild hydronephrosis Left Kidney: Enlarged in size and extremely fluid filled. Bladder: distended Right jet seen Right kidney shows lbno-so-csjttovf hydronephrosis improved from prior CT. There is enlarged left kid brayan with extensive cystic change and cortical thinning. No obvious left-sided hydronephrosis. No neph rolithiasis is seen. No masses are identified. On images saved The urinary bladder is distended. B ilateral ureteral jets are not seen. IMPRESSION: Mild to moderate right-sided hydronephrosis improved from October 03, 2020 CT. Left kidn ey findings suggest multicystic dysplastic kidney similar to prior studies.
== END | disposition home or self-care (01) ==
LOC: RADUSWWP 14:09
PROVIDERS: ATTEND Urology
DX: N13.30 Unspecified hydronephrosis (principal)
CPT/HCPCS: 76770

== ENCOUNTER → 2021-06-11 | Outpatient (CLI) | payer BC ==
--- NOTE | 2021-06-11 14:47 | MR ---
EXAMINATION TYPE: MR shoulder LT wo con DATE OF EXAM: 06/11/2021 COMPARISON: 05/28/2021 HISTORY: Pain in left shoulder TECHNIQUE: Multiplanar, multisequence imaging of the left shoulder is performed without contrast. FINDINGS: Rotator Cuff: There is supraspinatus and infraspinatus tendinopathy. The subscapularis and teres sukhwinder r tendons are intact. Acromioclavicular Joint: There are degenerative changes of the acromioclavicular joint without os acr omiale or subacromial spur. Small amount of fluid is present in the subacromial/subdeltoid bursa. Glenohumeral Joint: There are partial-thickness articular cartilage defects of the glenohumeral joint with small glenohumeral joint effusion. Labrum: The labrum appears grossly intact given limitation of non-arthrogram study. Biceps Tendon: The long head of biceps is in normal location within bicipital groove. Bone marrow signal: No focal abnormal marrow signal is appreciated. Other: No additional significant abnormality is appreciated. IMPRESSION: 1. Supraspinatus and infraspinatus tendinopathy. 2. Degenerative changes of the glenohumeral and acromioclavicular joints with fluid in the subacromia l/subdeltoid bursa and glenohumeral joint.
== END | disposition home or self-care (01) ==
LOC: RADMRIMAIN 12:56
PROVIDERS: ATTEND Orthopaedic Surgery
DX: M25.512 Pain in left shoulder (principal)

== ENCOUNTER → 2021-06-18 | Outpatient (CLI) | payer BC | END | disposition home or self-care (01) | LOC: LABWHC1 13:11 | PROVIDERS: ATTEND Urology | DX: N20.0 Calculus of kidney (principal) | CPT/HCPCS: 36415 ==

== ENCOUNTER → 2021-06-27 | Outpatient (CLI) | payer BC ==
[2021-06-27 14:31] LABS: Basophils # (A) 0.1 k/uL (0-0.2); Basophils % (A) 1 %; Eosinophils # (A) 0.2 k/uL (0-0.7); Eosinophils % (A) 4 %; HCT 46.5 % (34.0-46.0); HGB 15.6 gm/dL (11.4-16.0); Lymphocytes # (A) 1.4 k/uL (1.0-4.8); Lymphocytes % (A) 23 %; MCH 30.9 pg (25.0-35.0); MCHC 33.5 g/dL (31.0-37.0); MCV 92.1 fL (80.0-100.0); Mean Platelet Volume 7.4; Monocytes # (A) 0.4 k/uL (0-1.0); Monocytes % (A) 6 %; Neutrophils # (A) 3.8 k/uL (1.3-7.7); Neutrophils % (A) 63 %; Platelet Count 238 k/uL (150-450); RBC 5.05 m/uL (3.80-5.40); RDW 13.6 % (11.5-15.5)
[2021-06-27 14:40] LABS: Potassium 4.5 mmol/L (3.5-5.1)
== END | disposition home or self-care (01) ==
LOC: LABPAT 12:18
PROVIDERS: ATTEND Orthopaedic Surgery
DX: Z01.810 Encounter for preprocedural cardiovascular examination (principal); Z01.812 Encounter for preprocedural laboratory examination; M75.42 Impingement syndrome of left shoulder
CPT/HCPCS: 80051; 85025; 93005

== ENCOUNTER 2021-07-18 07:44 | Day surgery (SDC) | payer BC ==
[2021-07-12 15:33] VITALS: BMI 30.1
--- NOTE | 2021-07-17 20:29 | HP ---
HISTORY AND PHYSICAL DATE OF SURGERY: 07/18/2021 Lee Ann Ferreira is a 60-year-old patient seen with progressive left shoulder pain. We discussed options for treatment. She elected to proceed with arthroscopy. Consent was obtained. PAST MEDICAL HISTORY: Hypertension. SURGICAL HISTORY: Bilateral tubal ligation, cholecystectomy, lithotripsy. DAILY MEDICATIONS: Labetalol, potassium. ALLERGIES: NORVASC and SULFA. SOCIAL HISTORY: She denies current tobacco use. PHYSICAL EVALUATION OF THE LEFT SHOULDER: Flexion 90 degrees, abduction 80 degrees. External rotation is 30 degrees with pain and weakness. Tenderness along the anterolateral acromion and rotator cuff insertion site. Impingement is positive at 80 degrees. Cross-body adduction sign positive. Drop-arm sign positive. Distal neurovascular exam intact. RADIOGRAPHS: Radiographs of the left shoulder revealed a type 2 acromion, evidence for acromioclavicular joint osteoarthritis and cystic changes of the tuberosity. Left shoulder MRI revealed rotator cuff tendinitis, acromioclavicular joint osteoarthritis and glenohumeral joint osteoarthritis. IMPRESSION: 1. Left shoulder impingement with rotator cuff tendinitis versus tear. 2. Left shoulder acromioclavicular joint osteoarthritis. 3. Left shoulder glenohumeral joint osteoarthritis. 4. Hypertension. PLAN: Left shoulder arthroscopy with subacromial decompression, Tiago procedure, possible rotator cuff repair and debridement. MMODL / IJN: [id number] /
[~2021-07-18 07:44] MED LIST changes: -AMPICILLIN 1,000 MG in SODIUM CHLORIDE 0.9% 50 ML IVPB PRN; -DEXAMETHASONE SOD PHOSPHATE 4 MG/ML 1 ML VIAL IV ONE; -GENTAMICIN IVPB PRN; -HYDROmorphone 0.5 MG/0.5 ML SYRINGE IVP PRN; -LACTATED RINGERS 1,000 ML IV ONE; -LIDOCAINE 1% (10MG/ML) FOR IV START INTRADERMA PRN; -LIDOCAINE 1% INJ 10MG/ML (20 ML MDV) ONE; +MIDAZOLAM 2 MG/2 ML VIAL IV PRN; -MIDAZOLAM 2 MG/2 ML VIAL ONE; -ONDANSETRON 4 MG/2 ML VIAL IVP ONE; -ONDANSETRON 4 MG/2 ML VIAL ONE; -PROPOFOL 10 MG/ML 20 ML VIAL IV ONE; -SCOPOLAMINE 1.5MG/72HR PATCH TRANSDERM ONE; -SODIUM CHLORIDE 0.9% IVPB PRN; -ePHEDrine SULFATE/0.9% NACL/PF 50 MG/5 ML SYRINGE IV ONE; -fentaNYL (PF) 50 MCG/ML 2 ML AMP ONE
[2021-07-18] MEDS: ONDANSETRON 4 MG/2 ML VIAL IVP ONE ×2 (08:13→08:20)
[2021-07-18] MEDS: DEXAMETHASONE SOD PHOSPHATE 4 MG/ML 1 ML VIAL IV ONE ×2 (08:13→08:20)
[2021-07-18] MEDS ORDERED: ONDANSETRON 4 MG/2 ML VIAL ONE (08:24)
[2021-07-18] MEDS ORDERED: diphenhydrAMINE 50 MG/ML 1 ML VIAL ONE (08:48)
[2021-07-18] MEDS ORDERED: HYDROCORTISONE SUCCINATE 100 MG/2 ML VIAL IVP ONE (08:50)
[2021-07-18] MEDS ORDERED: MIDAZOLAM 2 MG/2 ML VIAL IVP ONE (09:28)
[2021-07-18] MEDS ORDERED: fentaNYL (PF) 50 MCG/ML 2 ML AMP ONE (09:36)
[2021-07-18] MEDS ORDERED: ROPIVACAINE 5 MG/ML 30 ML VIAL ONE (09:36)
[2021-07-18] MEDS ORDERED: SUCCINYLCHOLINE CHLORIDE 100 MG/5 ML SYR IV ONE (09:36)
[2021-07-18] MEDS ORDERED: PROPOFOL 10 MG/ML 20 ML VIAL IV ONE (09:36)
[2021-07-18] MEDS ORDERED: DEXAMETHASONE SOD PHOSPHATE 4 MG/ML 1 ML VIAL ONE (09:36)
[2021-07-18] MEDS ORDERED: LIDOCAINE 1% INJ 10MG/ML (20 ML MDV) ONE (09:36)
[2021-07-18 11:13] VITALS: TEMP 96.8
--- NOTE | 2021-07-18 11:13 | P.OP ---
Date of Procedure: 07/18/21 Preoperative Diagnosis: Left shoulder impingement Postoperative Diagnosis: 1. Left shoulder impingement 2. Left shoulder acromioclavicular joint osteoarthritis 3. 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 Left shoulder partial long head biceps tendon tear Procedure(s) Performed: 1. Left shoulder arthroscopic subacromial decompression 2. Left shoulder arthroscopic Tiago procedure 3. Left shoulder microfracture humeral head 4. Left shoulder chondroplasty humeral head 5. Left shoulder biceps tenotomy Anesthesia: GETA, regional (Interscalene block) Surgeon: Neville Hardwick Estimated Blood Loss (ml): 7 Pathology: none sent Condition: stable Disposition: PACU Indications for Procedure: 60-year-old patient seen with progressive left shoulder pain. After having treatment options discussed, she elected to proceed with arthroscopy. Operative Findings: see description of procedure Description of Procedure: Patient underwent an interscalene block by department of anesthesia. The patient was then taken to the operative suite. The patient underwent a general anesthetic by the department of anesthesia. The patient was placed into a lateral position and secured. There was appropriate padding of the bony prominence. Left shoulder was then prepped and draped in normal sterile orthopedic fashion. We placed the extremity in 10 pounds of longitudinal traction. A posterior incision was now made for a posterior working portal site. The trocar and cannula were inserted into the glenohumeral joint. Arthroscopy was initiated. Spinal needle was now inserted anteriorly, to ascertain the anterior working portal site. An incision was now made in that area, a trocar was inserted followed by a probe. There was some mild superficial fraying of the labrum anteriorly and superiorly. There was partial tearing long head biceps tendon with hyperemia. There was an area of grade 4 chondromalacia involving the humeral head measuring approximately 2 cm x 1 cm with large peripheral osteochondral flap tears present. There were grade 2 chondral malacia changes of the anterior portion of the glenoid fossa with no tears. I performed an arthroscopic biceps tenotomy. I now debrided out the superficial fraying of the labrum. At this point I switched my trocar and camera into the anterior portal site. I introduced the motorized shaver into the posterior portal site performed a chondroplasty of the humeral head. I probed the area was stable peripheral osteochondral surface noted. I now introduced a microfracture awls and I performed a microfracture to the humeral head penetrating the bone with resultant bleeding of the microfracture site. I probed the area again and the residual osteochondral surface remains stable. At this point instruments removed from glenohumeral joint. Utilizing the posterior working portal site, the trocar and cannula were inserted into the subacromial space. Arthroscopy initiated. I made an incision 2 fingerbreadths lateral to the acromion. I introduced my trocar followed by my ArthroCare ablator. I now began ablating thick subacromial bursal tissue, which exposed the undersurface of the anterior acromion. There was diminished subacromial space. There was a very prominent anterior acromion. A motorized bur was introduced and a subacromial decompression was performed. I also excised some osteophytes off the inferior aspect of the distal clavicle. The AC joint was visualized and noted to be fairly arthritic. The motorized bur was introduced in the anterior portal site and a Tiago procedure was performed without difficulty, decompressing the AC joint nicely. I turned my attention to the rotator cuff. I probed the rotator cuff tendon and found no significant tearing. I now introduced a spinal needle into the glenohumeral joint. I inje cted 1 mL Renyte intra-articular. Instruments now removed from the portal sites. All portal sites were approximated with nylon suture. Sterile dressings were applied followed by a shoulder sling. The patient was awakened, transferred to a bed, and taken to recovery in stable condition.
[2021-07-18] MEDS: LABETALOL SYRINGE 5 MG/ML IVP ONE ×2 (11:50→12:09)
--- NOTE | 2021-07-18 11:57 | P.ANPRN ---
Procedure Note - Anesthesia - Nerve Block Performed Left Interscalene Single Time Out Performed: Yes ([id number]) Date of Procedure: 07/18/21 Procedure Start Time: Procedure Stop Time: : Location of Patient: PreOp Indication: Acute Post-Operative Pain, Dx/Pain Location (Left Shoulder), Requested by Surgeon Specifically requested for management of pain by DrLourdes: Neville Hardwick Sedation Type: Sedate with meaningful contact maintained Preparation: Sterile Prep Position: Supine Catheter: None Needle Types: Pajunk Needle Gauge: 20, 21 Ultrasound used to visualize needle placement: Yes Ultrasound used to observe medication spread: Yes Injectate: 0.5% Ropivacaine (see comment for volume) (30 cc and decadron 4 mg) Blood Aspirated: No Pain Paresthesia on Injection Noted: No Resistance on Injection: Normal Image Stored and Saved: Yes Events: Uneventful and Well Tolerated
[2021-07-18] MEDS: HYDROmorphone 0.5 MG/0.5 ML SYRINGE IVP PRN ×2 (12:15→12:23)
[2021-07-18] MEDS ORDERED: KETOROLAC 15 MG/ML 1 ML VIAL ONE (12:22)
[2021-07-18] MEDS ORDERED: KETOROLAC 15 MG/ML 1 ML VIAL IVP ONE (12:24)
[2021-07-18] MEDS ORDERED: SODIUM CHLORIDE 0.9% 1,000 ML IV ONE (12:58)
[2021-07-18 13:06] VITALS: RESP 16
[2021-07-18 13:24] VITALS: BP 181/94
[2021-07-18 13:33] VITALS: PULSE 81
== END 2021-07-18 14:00 | disposition home or self-care (01) ==
LOC: OR 07:44
PROVIDERS: ATTEND Orthopaedic Surgery
DX: M25.812 Other specified joint disorders, left shoulder (principal); S46.212A Strain of muscle, fascia and tendon of other parts of biceps, left arm, initial encounter; M94.212 Chondromalacia, left shoulder; M19.012 Primary osteoarthritis, left shoulder; I10 Essential (primary) hypertension; Z88.2 Allergy status to sulfonamides; Z88.8 Allergy status to other drugs, medicaments and biological substances; E78.5 Hyperlipidemia, unspecified; Z87.891 Personal history of nicotine dependence; K21.9 Gastro-esophageal reflux disease without esophagitis; Z88.6 Allergy status to analgesic agent; Z79.899 Other long term (current) drug therapy
CPT/HCPCS: 64415; 76942; 29822; 29828; J2250; J1200; J1100; J1720; J0690; J2405; J2001; J3010; J2795; J1885; J0330; J2704; J1170

== ENCOUNTER → 2021-10-09 | Outpatient (CLI) | payer BC ==
--- NOTE | 2021-10-09 16:13 | XR ---
EXAMINATION TYPE: XR KUB DATE OF EXAM: 10/09/2021 Comparison: 02/15/2021 Clinical History: 61 year-old female N20.0 Calculus Kidney Findings: Cholecystectomy clips. Right-sided renal calculus measuring 4 mm. Small round calcification in the le ft side of the pelvis likely phleboliths. Large density within the left side of the abdomen, possible mass. Mild overall stool burden. Nonobstr uctive bowel gas pattern. Impression: Large focal density filling the left side of the abdomen. CT of the abdomen and pelvis can exclude un derlying mass. 4 mm right renal calculus.
== END | disposition home or self-care (01) ==
LOC: RADXRMAIN 14:41
PROVIDERS: ATTEND Urology
DX: N20.0 Calculus of kidney (principal)
CPT/HCPCS: 74018

== ENCOUNTER → 2021-11-01 | Outpatient (CLI) | payer BC ==
--- NOTE | 2021-11-02 17:13 | CT ---
EXAMINATION TYPE: CT abdomen pelvis wo con DATE OF EXAM: 11/01/2021 COMPARISON: CT 10/02/2020 HISTORY: flank pain, hx of stones CT DLP: 478.7 mGycm Automated exposure control for dose reduction was used. TECHNIQUE: Helical acquisition of images from the lung bases through the pelvis. FINDINGS: Lack of intravenous contrast could compromise sensitivity of the exam. There is a hiatal he rnia present. Thickening is present at the distal esophagus which is indeterminate. LUNG BASES: No significant abnormality is appreciated. AORTA: No significant abnormality is appreciated. LIVER/GB: No significant abnormality is appreciated. PANCREAS: No significant abnormality is seen. SPLEEN: No significant abnormality is seen. ADRENALS: No significant abnormality is seen. KIDNEYS: Left kidney is essentially replaced by cysts, this has progressed in the interval. There are some wall a shallow calcifications present at the lower pole of the left kidney. Overall dimensions are approximately 22 cm in cephalad to caudal dimension by 12 cm in transverse dimension by 16 cm in AP dimension. There is some soft tissue present at the cephalad aspect anteriorly, axial image #42 wh ich may represent some normal renal parenchyma. Multiple septations are present. There is left-sided hydroureter. The ureter shows a caliber change on axial image 92 on the left, focal calcification is present at this level measuring 6 to 7 mm, coronal image 52, distal to this the ureter is thought to show a normal caliber. The right kidney shows a nonobstructive calculus at the upper pole measuring a pproximately 5 mm, punctate calcification also present at the upper pole. Right kidney does show some pelvic caliectasis, no definite ureteral obstruction or hydroureter, find ings are indeterminate. REPRODUCTIVE ORGANS: No significant abnormality is seen. URINARY BLADDER: No significant abnormality is seen. BOWEL: No significant abnormality is seen. FREE AIR: No Free Air is visible. ASCITES: None visible. PELVIC ADENOPATHY: None visualized. RETROPERITONEAL ADENOPATHY: No Retroperitoneal Adenopathy visible. OSSEOUS STRUCTURES: Degenerative disc changes, facet arthropathy noted especially in the lower lumba r spine.. IMPRESSION: THERE HAS BEEN CONVERSION TO NEAR COMPLETE CYSTIC CHANGE INVOLVING THE LEFT KIDNEY. ABNORMAL SOFT TIS GARY ANTERIORLY IS INDETERMINATE. THERE IS PELVIC CALIECTASIS INVOLVING THE RIGHT KIDNEY, NONOBSTRUCTI VE CALCULI ALSO PRESENT. NONCONTRAST EXAM. ADDITIONAL FINDINGS ABOVE.
== END | disposition home or self-care (01) ==
LOC: RADCTMAIN 16:57
PROVIDERS: ATTEND Urology
DX: N20.0 Calculus of kidney (principal)
CPT/HCPCS: 74176

== ENCOUNTER 2024-02-08 10:14 | Day surgery (SDC) | payer BC ==
[~2024-02-08 10:14] MED LIST changes: -LACTATED RINGERS 1,000 ML IV SCH; +LIDOCAINE 1% (10MG/ML) FOR IV START INTRADERMA PRN; -MIDAZOLAM 2 MG/2 ML VIAL IV PRN; +ONDANSETRON 4 MG/2 ML VIAL IVP PRN
[2024-02-08] MEDS: LACTATED RINGERS 1,000 ML IV SCH (10:58)
[2024-02-08 11:09] VITALS: TEMP 98.4
[2024-02-08] MEDS ORDERED: PROPOFOL 10 MG/ML 20 ML VIAL IV ONE (11:23)
--- NOTE | 2024-02-08 11:27 | P.GSHP ---
History of Present Illness H&P Date: 02/08/24 Chief Complaint: Screening colonoscopy This a 63-year-old female been safe for screening colonoscopy. Patient denies a significant GI complaints. Past Medical History Past Medical History: GERD/Reflux, Hyperlipidemia, Hypertension, Osteoarthritis (OA) Additional Past Medical History / Comment(s): hx kidney stones, recent URI tx with Steroids. left kidney not functioning normally, sees Dr Mcrae. left should er arthritis. History of Any Multi-Drug Resistant Organisms: None Reported Past Surgical History: Cholecystectomy, Tubal Ligation Additional Past Surgical History / Comment(s): lithotripsy, cystoscopy/left ureteroscopy, colonoscopy Past Anesthesia/Blood Transfusion Reactions: Postoperative Nausea & Vomiting (PONV) Smoking Status: Former smoker - Past Family History Father Family Medical History: Cancer Additional Family Medical History / Comment(s): leukemia Medications and Allergies Home Medications Medication Instructions Recorded Confirmed Type Ezetimibe [Zetia] 10 mg PO DAILY #90 tab 02/22/19 02/08/24 Rx Labetalol [Trandate] 300 mg PO BID 07/21/20 02/08/24 History Rosuvastatin Calcium 5 mg PO HS 02/04/24 02/08/24 History hydroCHLOROthiazide 12.5 mg PO DAILY 02/04/24 02/08/24 History Allergies Allergy/AdvReac Type Severity Reaction Status Date / Time amlodipine [From Norvasc] Allergy HANDS AND Verified 02/08/24 10:58 FEET SWELL bee venom protein (honey bee) Allergy Swelling Verified 02/08/24 10:58 Sulfa (Sulfonamide Allergy Abdominal Verified 02/08/24 10:58 Antibiotics) Pain, nausea aspirin AdvReac DX WITH Verified 02/08/24 10:58 STOMACH ULCER ibuprofen [From Motrin] AdvReac DX WITH Verified 02/08/24 10:58 STOMACH ULCER Surgical - Exam Vital Signs Temp Pulse Resp BP Pulse Ox 98.4 F 74 18 180/78 94 L 02/08/24 10:51 02/08/24 10:51 02/08/24 10:51 02/08/24 10:51 02/08/24 10:51 - General well developed, well nourished, no distress - Eyes PERRL - ENT normal pinna - Neck no masses - Respiratory normal expansion - Cardiovascular Rhythm: regular - Abdomen Abdomen: soft, non tender Assessment and Plan Assessment: We'll perform screening colonoscopy.
--- NOTE | 2024-02-08 12:01 | P.OP ---
Date of Procedure: 02/08/24 Preoperative Diagnosis: Screening colonoscopy Postoperative Diagnosis: Diverticulosis Procedure(s) Performed: Colonoscopy Anesthesia: MAC Surgeon: Aleksandar Johnson Pathology: none sent Condition: stable Disposition: PACU Operative Findings: Diverticulosis Description of Procedure: Patient's placed on the endoscopy table lateral position. She received IV sedation. Digital rectal exam was performed. This revealed no abnormalities. Flexible colonoscope was then placed patient anus and passed throughout the entire colon. The ileocecal valve was visually. The cecum, ascending and transverse colon appeared normal. In the descending and sigmoid colon there was mild diverticulosis. The scope was then brought back the rectum and this appeared normal. Scope withdrawn for patient. The diverticular changes were located in the sigmoid and descending colon.
[2024-02-08 12:19] VITALS: BP 179/75; PULSE 69; RESP 16
== END 2024-02-08 12:33 | disposition home or self-care (01) ==
LOC: ORWHC2ENDO 10:14
PROVIDERS: ATTEND Surgery
DX: Z12.11 Encounter for screening for malignant neoplasm of colon (principal); K57.30 Diverticulosis of large intestine without perforation or abscess without bleeding; I10 Essential (primary) hypertension; E78.5 Hyperlipidemia, unspecified; M19.90 Unspecified osteoarthritis, unspecified site; K21.9 Gastro-esophageal reflux disease without esophagitis; Z87.442 Personal history of urinary calculi; Z90.49 Acquired absence of other specified parts of digestive tract; Z98.51 Tubal ligation status; Z98.890 Other specified postprocedural states; Z87.891 Personal history of nicotine dependence; Z79.899 Other long term (current) drug therapy; Z88.8 Allergy status to other drugs, medicaments and biological substances; Z91.030 Bee allergy status; Z88.2 Allergy status to sulfonamides; Z88.6 Allergy status to analgesic agent
CPT/HCPCS: 45378; J2704